=== PATIENT | female | born 1965 | race Caucasian/White ===

== ENCOUNTER 2017-01-11 05:52 | Emergency (ER) | payer OTHER ==
[~2017-01-11] VITALS: Ht 160 cm; Wt 124.3 kg
[~2017-01-11 05:52] MED LIST: ALBUAER2 INH; DIPH25CA65 PO; FLNIN/ NAE; LORA-741 PO; MOME100A INH; MONT1TAB3 PO
[2017-01-11 05:56] VITALS: TEMP 37.1; Ht 160 cm; Wt 124.3 kg
--- NOTE | 2017-01-11 06:48 | DIAGNOSTIC IMAGING REPORT ---
RIGHT SHOULDER MIN 2 VIEWS ROUTINE CLINICAL HISTORY: Right shoulder pain COMPARISON: None. DISCUSSION: No fractures or dislocations are visualized. There are no visible periarticular calcifications. No destructive lesions are evident. IMPRESSION: No fractures, periarticular calcifications, or destructive lesions are visualized Electronically signed by: Scot Andrews M.D. 01/11/2017 6:47 AM Dictated Date/Time: 01/11/2017 6:46 AM
[2017-01-11] MEDS ORDERED: HYDR-5688 PO (06:54)
[2017-01-11] MEDS ORDERED: PRED20TA2 PO (06:54)
[2017-01-11] MEDS ORDERED: IBUPROFEN 600 MG TAB PO STA (07:05)
[2017-01-11 07:23] VITALS: BP 136/101; PULSE 74; O2SAT 97
--- NOTE | 2017-01-11 22:39 | EMERGENCY ROOM VISIT NOTE ---
History First contact with patient: 06:02 Chief Complaint: SHOULDER PAIN Stated Complaint: RIGHT SHOULDER PAIN,CAN'T MOVE History of Present Illness The patient is a 51 year old female who presents to the Emergency Room with complaints of right shoulder pain for the past one month. The patient states that she has had a slowly worsening pain throughout this time. She does not recall a distinct injury or trauma. She is without numbness or paresthesias. She states that she woke up this morning with significantly worse symptoms, prompting her presentation. She does not have neck pain, elbow pain, or wrist pain. She is without chest pain or fever. No rash. She rates her current discomfort a 7/10. She has not taken anything duyo-zno-zxlzdax for her discomfort, as she states that she is allergic to all pain medication. She is not followed with PCP or seeing orthopedics for this. No previous imaging Review of Systems More than 10 systems were reviewed and otherwise negative with the exception of history of present illness. 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 (3) Family History Of Other Cardiovascular Diseases (4) Psychosis Nos Family History No pertinent family history Social History Smoking Status: Never Smoker Alcohol Use: none Drug Use: none Marital Status: Housing Status: lives with family Occupation Status: employed Current/Historical Medications Scheduled Prednisone (Prednisone Tab), 2 TAB PO DAILY Scheduled PRN Albuterol (Ventolin), 2 PUFFS INH QID PRN for Wheezing Diphenhydramine Hcl (Benadryl Allergy), 25-50 MG PO Q4H PRN for ALLERGIC REACTION Fluticasone Propionate (Fluticasone Propionate), 2 SPRAYS SHAUNA DAILY PRN for ALLERGIC REACTION Hydrocodone/Acetaminophen 5MG/325MG ([place] 5MG/325MG), 1 TABLET PO Q6 PRN for Pain Lorazepam (Ativan), 0.5 MG PO DAILY PRN for Anxiety Mometasone Furoate-Formoterol (Dulera 100/5 Mcg), 2 PUFFS INH QAM PRN for SOB/ Wheezing Montelukast Sodium (Singulair), 10 MG PO HS PRN for ALLERGIC REACTION Allergies Coded Allergies: Morphine (Verified Allergy, Severe, TONGUE SWELLS, HIVES, 10/02/16) CAUSES TONGUE TO SWELL Amoxicillin (Verified Allergy, Mild, GI UPSET, URINARY INCONTINENCE, ) Latex1 -Allergic Contact Dermititis (Verified Allergy, Unknown, RASH, 10/02) Uncoded Allergies: ALL PAIN MEDS (Allergy, Intermediate, HIVES, 01/09/11) Physical Exam Vital Signs Date Time Temp Pulse Resp B/P Pulse Ox O2 Delivery O2 Flow Rate FiO2 01/11/17 07:23 74 16 136/101 97 01/11/17 05:56 37.1 86 22 171/96 98 Room Air Physical Exam VITALS: Vitals are noted on the nurse's note and reviewed by myself. Vital signs stable. GENERAL: Well-developed, well-nourished, white female, who is in no acute distress and resting comfortably. Patient is cooperative with the examination. HEAD: Normocephalic atraumatic. NECK: Supple without nuchal rigidity. No lymphadenopathy. No thyromegaly. Cervical spine is nontender. HEART: Regular rate and rhythm without murmurs gallops or rubs. LUNGS: Clear to auscultation bilaterally without wheezes, rales or rhonchi. No retractions or accessory muscle use. MUSCULOSKELETAL: No muscle atrophy, erythema, or edema noted. Patient is not able to abduct at the right shoulder. There is no discomfort with internal or external rotation. Tenderness appreciated throughout the supraspinatus into the lateral deltoid. No significant deformity noted. No significant tenderness appreciated throughout the neck, elbow, or wrist. Medical Decision & Procedures ER Provider Diagnostic Interpretation: RIGHT SHOULDER MIN 2 VIEWS ROUTINE CLINICAL HISTORY: Right shoulder pain COMPARISON: None. DISCUSSION: No fractures or dislocations are visualized. There are no visible periarticular calcifications. No destructive lesions are evident. IMPRESSION: No fractures, periarticular calcifications, or destructive lesions are visualized Medications Administered Medications (Trade) Dose Ordered Sig/Miguel A Route Start Time Stop Time Status Last Admin Dose Admin Prednisone (PredniSONE TAB) 40 mg NOW STAT PO 01/11/17 06:08 01/11/17 06:10 DC 01/11/17 06:15 40 MG ED Course Physical exam and history were performed. Nursing notes and EMR were reviewed. Patient appears to have right shoulder pain worsening over the past month. I did offer pain medication, however the patient states that she is allergic to all pain medication. Because of this I did provide her a dose of prednisone, as clinically her symptoms are most likely related to arthritis or other similar chronic process. The patient x-rays were performed, and are without signs of acute fracture or dislocation. I had a lengthy discussion with the patient regarding her symptoms and further options of care. She states that her pain is so great that she is willing to take pain medications. She reports that if she takes Benadryl with medicine, she is able to tolerate things well. The patient and I decided that we would trial a very short course of Vicodin. She is to take Benadryl with this. Additionally I will provide her prednisone, which should help blunt any sort of medication reaction as well. The patient is to return to the emergency department with any new, worsening, or concerning symptoms. I do feel that she is good candidate for outpatient orthopedic follow -up, and she has seen [facility] in the past for this. She may need injections because of her allergy situation. The patient was pleased with this plan of voiced understanding. The chart was completed utilizing [employer] Speech Voice Recognition Software. Grammatical errors, random word insertions, pronoun errors, and incomplete sentences are an occasional consequence of this system due to software limitations, ambient noise, and hardware issues. Any formal questions or concerns about the content, text, or information contained within the body of this dictation should be directly addressed to the provider for clarification. . Medical Decision Differential diagnosis includes, but is not limited to: Sprain, strain, fracture , dislocation, subluxation, contusion, arthritis, rotator cuff injury, and others Impression Primary Impression: Right shoulder pain Departure Information Prescriptions Prednisone (Prednisone Tab) 20 Mg Tab 2 TAB PO DAILY for 4 Days, #8 TAB Prov: Jaime Tidwell PA-C 01/11/17 Hydrocodone/Acetaminophen 5MG/325MG ([place] 5MG/325MG) Tab 1 TABLET PO Q6 Y for Pain, #10 TAB For Initial Treatment Prov: Jaime Tidwell PA-C 01/11/17 Referrals Arlet Robins D.O. (PCP) Patient Instructions My [facility]
== END 2017-01-11 07:26 | disposition home or self-care (01) ==
LOC: C.EDB 05:54 → C.EDA 07:26
DX: M25.511 Pain in right shoulder (principal); Z90.5 Acquired absence of kidney; Z88.1 Allergy status to other antibiotic agents; Z88.5 Allergy status to narcotic agent; Z91.040 Latex allergy status; Z82.49 Family history of ischemic heart disease and other diseases of the circulatory system

== ENCOUNTER 2017-01-15 10:16 | Emergency (ER) | payer OTHER ==
[~2017-01-15] VITALS: Ht 160 cm; Wt 124.6 kg
[~2017-01-15 10:16] MED LIST changes: +HYDR-5688 PO; +PRED20TA2 PO
[2017-01-15 10:21] VITALS: TEMP 37; Ht 160 cm; Wt 124.6 kg
[2017-01-15 11:10] LABS: MANUAL MICROSCOPIC REQUIRED? NO; REVIEW REQ? YES; URINE APPEARANCE CLEAR (CLEAR); URINE BILIRUBIN NEG (NEG); URINE COLOR YELLOW; URINE EPITHELIAL CELL AUTO >30 /lpf (0-5); URINE NITRITE NEG (NEG); URINE PH 5.5 (4.5-7.5); URINE SPECIFIC GRAVITY 1.024 (1.000-1.030); UROBILINOGEN NEG (NEG)
[2017-01-15] MEDS ORDERED: SERT-234 PO (11:16)
[2017-01-15] MEDS ORDERED: IBUP-103 PO (11:16)
[2017-01-15] MEDS ORDERED: TOPI25TA99 PO (11:16)
[2017-01-15] MEDS ORDERED: MARIJUANA PO (11:16)
[2017-01-15 11:29] LABS: BENZODIAZEPINE, URINE NEG (NEG); COCAINE,URINE NEG (NEG); PHENCYCLIDINE, URINE NEG (NEG)
--- NOTE | 2017-01-15 11:36 | EMERGENCY ROOM VISIT NOTE ---
History Report prepared by Naun: Amanda Escalante Under the Supervision of: Dr. Ronnie Parker D.O. First contact with patient: 10:34 Chief Complaint: MENTAL HEALTH EVALUATION Stated Complaint: MENTAL BREAKDOWN History of Present Illness The patient is a 51 year old female who presents to the Emergency Room with complaints of worsening depression that began four weeks ago. The patient states that she has a history of suicidal depression since she was 17. She states that she has attempted suicide several times throughout the last several years. The patient states that the last time she was evaluated in the hospital for her suicidal depression was ten years ago when she lost her son. She states that she has followed with a therapist since then and states that the last time she saw her therapist was last night. The patient states that she was encouraged by her manager rn case from [place] to seek assistance four weeks ago, but the patient states that she has been holding off. The patient states that over the past two years she has lost several people who are very close to her, including a cousin, two grandmothers, several friends, and a client that she was close to. She states that for five years she fought to obtain full custody of her children who are 15 and 17 from their father who is an alcoholic. The patient states that she has dealt with their after affects and got them in to see psychologists. Today, the patient admits to suicidal ideation with a plan to overdose on her medications. She states that she would park her car in the hospital lot and take all her medications. The patient states that she would never shoot herself and would never do it where an "innocent person" would find her. She states that she needs a safe place to deal with her breakdown, noting that if she does not get the help she will hurt herself or herself. The patient states that she has been noncompliant with her medications since ving after having a conversation with her therapist and lead case manager. She states that she has been using her Ativan and has been self medicating with medicinal marijuana several times per day. The patient states that she has had right shoulder pain and was evaluated in the emergency department recently for it. She states that she needs to have a follow up appointment with Dr. Canas. The patient states that she has a history of 2 discs removed in her neck, hysterectomy, and a right nephrectomy. She denies any history of diabetes or hypertension. The patient denies any tobacco or alcohol use. Source of History: patient Onset: four weeks Position: other (global) Quality: other (depression) Timing: worsening Note: Associated Symptoms: suicidal ideation with plan, noncompliant with medications Review of Systems See HPI for pertinent positives & negatives. A total of 10 systems reviewed and were otherwise negative. 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 (3) Family History Of Other Cardiovascular Diseases (4) Psychosis Nos Family History No pertinent family history Social History Smoking Status: Never Smoker Alcohol Use: none Drug Use: none Marital Status: Housing Status: lives with family Occupation Status: employed Current/Historical Medications Scheduled Ibuprofen Tab (Advil), 400 MG PO UNKNOWN Prednisone (Prednisone Tab), 2 TAB PO DAILY Sertraline (Zoloft), 100 MG PO DAILY Topiramate (Topamax ), 25 MG PO HS [Marijuana], 1 DOSE PO DAILY Scheduled PRN Albuterol (Ventolin), 2 PUFFS INH QID PRN for Wheezing Diphenhydramine Hcl (Benadryl Allergy), 25-50 MG PO Q4H PRN for ALLERGIC REACTION Fluticasone Propionate (Fluticasone Propionate), 2 SPRAYS SHAUNA DAILY PRN for ALLERGIC REACTION Hydrocodone/Acetaminophen 5MG/325MG ([place] 5MG/325MG), 1 TABLET PO Q6 PRN for Pain Lorazepam (Ativan), 1 MG PO DAILY PRN for Anxiety Mometasone Furoate-Formoterol (Dulera 100/5 Mcg), 2 PUFFS INH QAM PRN for SOB/ Wheezing Montelukast Sodium (Singulair), 10 MG PO HS PRN for ALLERGIC REACTION Allergies Coded Allergies: Morphine (Verified Allergy, Severe, TONGUE SWELLS, HIVES, 01/15/17) CAUSES TONGUE TO SWELL Amoxicillin (Verified Allergy, Mild, GI UPSET, URINARY INCONTINENCE, ) Latex1 -Allergic Contact Dermititis (Verified Allergy, Unknown, RASH, 01/15) Uncoded Allergies: ALL PAIN MEDS (Allergy, Intermediate, HIVES, 01/09/11) Physical Exam Vital Signs Date Time Temp Pulse Resp B/P Pulse Ox O2 Delivery O2 Flow Rate FiO2 01/15/17 17:03 61 17 144/87 97 Room Air 01/15/17 13:37 76 20 163/100 98 Room Air 01/15/17 10:21 37.0 91 20 148/86 96 Room Air Physical Exam GENERAL: Patient is awake, alert, somewhat anxious appearing, but comfortable. Does not appear to be in pain or guarded. EYES: The conjunctivae are clear. The pupils are round and reactive. EARS, NOSE, MOUTH AND THROAT: The nose is without any evidence of any deformity. Mucous membranes are moist tongue is midline NECK: The neck is nontender and supple. RESPIRATORY: Normal respiratory effort is noted there is no evidence of wheezing rhonchi or rales CARDIOVASCULAR: Regular rate and rhythm noted there no murmurs rubs or gallops normal S1 normal S2 GASTROINTESTINAL: The abdomen is soft. Bowel sounds are present in all quadrants. Abdomen is nontender MUSCULOSKELETAL/EXTREMITIES: Right shoulder is in a sling from a recent ER visit. SKIN: There is no obvious evidence of any rash. There are no petechiae, pallor or cyanosis noted. NEUROLOGIC: Patient is awake alert and oriented x3 strength is symmetric patellar reflexes are 2+ bilaterally PSYCH: Patient was tearful and somewhat anxious appearing, currently admits to suicidal ideation with a plan to overdose on medications. Medical Decision & Procedures Laboratory Results 01/15/17 11:24 Red Blood Count 3.99, Mean Corpuscular Volume 90.2, Mean Corpuscular Hemoglobin 32.1, Mean Corpuscular Hemoglobin Concent 35.6, Mean Platelet Volume 9.4, Neutrophils (%) (Auto) 82.7, Lymphocytes (%) (Auto) 12.7, Monocytes (%) (Auto) 4.0, Eosinophils (%) (Auto) 0.2, Basophils (%) (Auto) 0.2, Neutrophils # (Auto) 10.23, Lymphocytes # (Auto) 1.57, Monocytes # (Auto) 0.50, Eosinophils # (Auto) 0.02, Basophils # (Auto) 0.02 01/15/17 13:57 Test 01/15/17 10:57 01/15/17 11:24 01/15/17 13:57 Urine Color YELLOW Urine Appearance CLEAR (CLEAR) Urine pH 5.5 (4.5-7.5) Urine Specific [place] 1.024 (1.000-1.030) Urine Protein NEG (NEG) Urine Glucose (UA) NEG (NEG) Urine Ketones NEG (NEG) Urine Occult Blood 1+ (NEG) Urine Nitrite NEG (NEG) Urine Bilirubin NEG (NEG) Urine Urobilinogen NEG (NEG) Urine Leukocyte Esterase NEG (NEG) Urine WBC (Auto) 1-5 /hpf (0-5) Urine RBC (Auto) 5-10 /hpf (0-4) Urine Hyaline Casts (Auto) 1-5 /lpf (0-5) Urine Epithelial Cells (Auto) >30 /lpf (0-5) Urine Bacteria (Auto) 1+ (NEG) Urine Yeast (Auto) (NONE PRSENT) Urine Opiates Screen POS (NEG) Urine Methadone, Qualitative NEG (NEG) Urine Barbiturates NEG (NEG) Urine Phencyclidine (PCP) Level NEG (NEG) Ur Amphetamine/Methamphetamine NEG (NEG) MDMA (Ecstasy) Screen NEG (NEG) Urine Benzodiazepines Screen NEG (NEG) Urine Cocaine Metabolite NEG (NEG) Urine Marijuana (THC) POS (NEG) White Blood Count 12.37 K/uL (4.8-10.8) Red Blood Count 3.99 M/uL (4.2-5.4) Hemoglobin 12.8 g/dL (12.0-16.0) Hematocrit 36.0 % (37-47) Mean Corpuscular Volume 90.2 fL (80-100) Mean Corpuscular Hemoglobin 32.1 pg (25-34) Mean Corpuscular Hemoglobin Concent 35.6 g/dl (32-36) Platelet Count 207 K/uL (130-400) Mean Platelet Volume 9.4 fL (7.4-10.4) Neutrophils (%) (Auto) 82.7 % Lymphocytes (%) (Auto) 12.7 % Monocytes (%) (Auto) 4.0 % Eosinophils (%) (Auto) 0.2 % Basophils (%) (Auto) 0.2 % Neutrophils # (Auto) 10.23 K/uL (1.4-6.5) Lymphocytes # (Auto) 1.57 K/uL (1.2-3.4) Monocytes # (Auto) 0.50 K/uL (0.11-0.59) Eosinophils # (Auto) 0.02 K/uL (0-0.5) Basophils # (Auto) 0.02 K/uL (0-0.2) RDW Standard Deviation 42.6 fL (36.4-46.3) RDW Coefficient of Variation 13.0 % (11.5-14.5) Immature Granulocyte % (Auto) 0.2 % Immature Granulocyte # (Auto) 0.03 K/uL (0.00-0.02) Total Bilirubin 0.7 mg/dl (0.2-1) Direct Bilirubin 0.2 mg/dl (0-0.2) Aspartate Amino Transf (AST/SGOT) 5 U/L (15-37) Alanine Aminotransferase (ALT/SGPT) 15 U/L (12-78) Alkaline Phosphatase 67 U/L (45-117) Total Protein 7.3 gm/dl (6.4-8.2) Albumin 3.8 gm/dl (3.4-5.0) Globulin 3.5 gm/dl (2.5-4.0) Albumin/Globulin Ratio 1.1 (0.9-2) Thyroid Stimulating Hormone (TSH) 0.874 uIu/ml (0.300-4.500) Ethyl Alcohol mg/dL < 3.0 mg/dl (0-3) Venous Blood pH 7.43 (7.36-7.41) Venous Blood Partial Pressure CO2 34 mmHg (38.0-50.0) Venous Blood Partial Pressure O2 49 mmHg Venous Blood HCO3 22 mmol/L Venous Blood Oxygen Saturation 83.5 % Venous Blood Base Excess -1.3 mmol/L Anion Gap 9.0 mmol/L (3-11) Est Creatinine Clear Calc Drug Dose 78.5 ml/min Estimated GFR () 67.8 Estimated GFR (Non- 58.5 BUN/Creatinine Ratio 20.1 (10-20) Calcium Level 8.9 mg/dl (8.5-10.1) Laboratory results per my review. ED Course 1035: The patient was evaluated in room A5. A complete history and physical examination were performed. 1639: The patient was accepted at the [facility] for further evaluation and treatment. Medical Decision Differential diagnosis: Etiologies such as mood disorder, infection, hypoglycemia, electrolyte abnormalities, cardiac sources, intracerebral event, toxicologic, neurologic, as well as others were entertained. Nursing notes reviewed. Patient's previous electronic medical records reviewed. The patient is a 51-year-old female who presented to the department with significant anxiety and depression symptoms. She also had suicidal ideation with a plan to overdose on medications. Oas-ukbmcio-eupiiomq-iy-ksbq-atqq-degree -of-hyperventilation.-Bp-fsq-zqwiisz-lpb-de-lplrwjcwbba-qgr-yos-h-low- bicarbonate.-Gknpdm-kzmbunhqpv-mynbcsw-jvn-trxg-ozey hyperventilation. The patient was medically cleared in the emergency department. She was evaluated by the mental health lead case manager in the emergency department. She was felt to be a good candidate for inpatient management. The patient was referred to to the [facility]. She was accepted at the [facility]. Transfer documentation was follow-up by myself. Impression Primary Impression: Depression Additional Impression: Suicidal ideation Scribe Attestation The scribe's documentation has been prepared under my direction and personally reviewed by me in its entirety. I confirm that the note above accurately reflects all work, treatment, procedures, and medical decision making performed by me. Departure Information Dispostion Mental Health Acute Care Referrals Arlet Robins D.O. (PCP) Problem Qualifiers
[2017-01-15 11:37] LABS: BASO % 0.2 %; BASO ABS # 0.02 K/uL (0-0.2); COMPLETE YES; EOS % 0.2 %; IG% 0.2 %; LYMPH % 12.7 %; LYMPH ABS # 1.57 K/uL (1.2-3.4); MEAN CELL VOLUME 90.2 fL (80-100); MEAN CORPUSCULAR HEMOGLOBIN 32.1 pg (25-34); MEAN CORPUSCULAR HGB CONC 35.6 g/dl (32-36); MEAN PLATELET VOLUME 9.4 fL (7.4-10.4); NEUT % 82.7 %; PLATELET COUNT 207 K/uL (130-400); RED BLOOD COUNT 3.99 M/uL (4.2-5.4); WHITE BLOOD COUNT 12.37 K/uL (4.8-10.8)
[2017-01-15 11:58] LABS: CREATININE 1.2 mg/dl (0.60-1.20)
[2017-01-15 11:59] LABS: BUN/CREATININE RATIO 18.9 (10-20); CALCIUM 8.4 mg/dl (8.5-10.1); POTASSIUM 3.9 mmol/L (3.5-5.1)
[2017-01-15 12:09] LABS: ALB/GLOB RATIO 1.1 (0.9-2); THYROID STIMULATING HORMONE 0.874 uIu/ml (0.300-4.500)
[2017-01-15 14:12] LABS: VEN BLD GAS O2 SATURATION 83.5 %; VEN BLOOD GAS BASE EXCESS -1.3 mmol/L
[2017-01-15 14:25] LABS: BUN/CREATININE RATIO 20.1 (10-20); CALCIUM 8.9 mg/dl (8.5-10.1); CREATININE 1.1 mg/dl (0.60-1.20); POTASSIUM 4.5 mmol/L (3.5-5.1)
[2017-01-15 17:03] VITALS: BP 144/87; PULSE 61; O2SAT 97
[2017-01-17 15:26] LABS: COD UR NEGATIVE NG/ML (CUTOFF=50); HYDROCOD UR 706 NG/ML (CUTOFF=50); HYDROMOR UR 242 NG/ML (CUTOFF=50); MORPHINE UR NEGATIVE NG/ML (CUTOFF=50); NORHYDROCODONE CONF UR 700 NG/ML (CUTOFF=50); OXYMORPH UR NEGATIVE NG/ML (CUTOFF=50)
== END 2017-01-15 18:27 ==
LOC: C.EDB 10:17 → C.EDA 18:27
DX: F32.9 Major depressive disorder, single episode, unspecified (principal); R45.851 Suicidal ideations; Z90.710 Acquired absence of both cervix and uterus; Z90.5 Acquired absence of kidney; Z90.79 Acquired absence of other genital organ(s); Z79.899 Other long term (current) drug therapy; Z88.1 Allergy status to other antibiotic agents; Z88.5 Allergy status to narcotic agent; Z91.040 Latex allergy status

== ENCOUNTER → 2017-05-23 | Outpatient (CLI) | payer OTHER ==
[~2017-05-23] MED LIST changes: +IBUP-103 PO; +MARIJUANA PO; -PRED20TA2 PO; +SERT-234 PO; +TOPI25TA99 PO
== END | disposition home or self-care (01) ==
LOC: C.CPL 15:01
PROVIDERS: ATTEND Orthopaedic Surgery
DX: Z01.810 Encounter for preprocedural cardiovascular examination (principal); I49.3 Ventricular premature depolarization

== ENCOUNTER 2021-02-15 18:59 | Inpatient (IN) ==
[2021-02-15 20:23] LABS: Basophils # (auto) 0.01 K/uL (0-0.2); Basophils % (auto) 0.2 %; Eosinophils # (auto) 0.06 K/uL (0-0.5); Eosinophils % (auto) 1.1 %; Hematocrit (blood only) 35.8 % (37-47); Hemoglobin 12.6 g/dL (12.0-16.0); Immature Granulocytes # (auto) 0.01 K/uL (0.00-0.02); Immature Granulocytes % (auto) 0.2 %; Lymphocytes # (auto) 1.65 K/uL (1.2-3.4); Lymphocytes % (auto) 29.2 %; Mean Corpuscular Hgb Conc 35.2 g/dL (32-36); Mean Platelet Volume 9.1 fL (7.4-10.4); Monocytes # (auto) 0.54 K/uL (0.11-0.59); Monocytes % (auto) 9.6 %; Neutrophils # (auto) 3.38 K/uL (1.4-6.5); Neutrophils % (auto) 59.7 %; Platelet Count 248 K/uL (130-400); RDW Coefficient of Variation 12.5 % (11.5-14.5); RDW Standard Deviation 40.2 fL (36.4-46.3); Red Blood Count 4.07 M/uL (4.2-5.4); White Blood Count 5.65 K/uL (4.8-10.8)
[2021-02-15 20:39] LABS: Albumin Level 3.5 gm/dl (3.4-5.0); BUN Creatinine Ratio 17.4 (10-20); Calcium 9.7 mg/dl (8.5-10.1); Creatinine Clr Calc Pharmacy 64.8 ml/min; Est GFR (African American) 59.3; Est GFR (Non-African American) 51.2; Potassium 3.8 mmol/L (3.5-5.1)
[2021-02-15 20:45] LABS: Acetaminophen < 2 ug/ml (10-30); Salicylate < 1.7 mg/dl (2.8-20)
[2021-02-15 20:49] LABS: Albumin Globulin Ratio 0.9 (0.9-2); Bilirubin,Total 1.2 mg/dl (0.2-1); Globulin 4.1 gm/dl (2.5-4.0); Thyroid Stimulating Hormone 0.006 uIu/ml (0.300-4.500); Total Protein 7.6 gm/dl (6.4-8.2)
[2021-02-15 21:02] LABS: T4 Free Thyroxine 2.27 ng/dl (0.8-1.6)
[2021-02-15] MEDS ORDERED: SODIUM CHLORIDE 0.9% 1000ML 1,000 ML IV ONE (21:23)
[2021-02-15 23:37] LABS: Appearance Urine Clear (Clear); Bacteria Urine Automated Negative (Negative); Bilirubin Urine Negative (Negative); Blood Urine Trace (Negative); Color Urine Yellow; Glucose Urine UA Negative (Negative); Ketones Urine Negative (Negative); Leukocyte Esterase Urine Negative (Negative); Nitrite Urine Negative (Negative); Protein Urine Negative (Negative); RBC Urine Automated 0-4 /hpf (0-4); Specific Gravity Urine 1.012 (1.000-1.030); Urobilinogen Urine Negative (Negative); WBC Urine Automated 0 /hpf (0-5); pH Urine 5.5 (4.5-7.5)
[2021-02-16 00:49] LABS: Amphetamines+Metham, Urine Neg (Neg); Barbiturates, Urine Neg (Neg); Benzodiazepine, Urine Neg (Neg); Cocaine, Urine Neg (Neg); MDMA (Ecstacy), Urine Neg (Neg); Methadone, Urine Neg (Neg); Opiate, Urine Neg (Neg); Phencyclidine, Urine Neg (Neg)
--- NOTE | 2021-02-16 02:21 | History and Physical Report ---
DATE OF ADMISSION: 02/15/2021 CHIEF COMPLAINT: Suicidal ideation, shingles. HISTORY OF PRESENT ILLNESS: A 55-year-old female with past medical history significant for asthma, seasonal allergic rhinitis, GERD, stage III chronic kidney disease, allergic conjunctivitis, who went to PCP office today because of rash developing on her left shoulder region. The rash started about 2-3 days ago, it was painful and when she was told she had shingles, she was worried about how she got it and when family doctor asked whether she has any anxiety and stress at home, then she started crying and she could not stop crying. She also disclosed plans of taking her life at PCP office and she was brought into the hospital. Currently, resting comfortably. Case management from [employer] in the room and patient says she is feeling better now after talking to case management. Denies any headache, no blurred visions, no sore throat. She has chronic cough, chronic shortness of breath on exertion. Once in a while she gets chest pain, attributes it to her GERD. Currently, no chest pain. Has nausea, no vomiting. Appetite is down. She says she thinks she lost about 15 pounds in the last 1 month, she is having diarrhea for last 1 month about three times a day, mostly watery. Today was the first time she got some formed stool. She denies any blood in the stools or black stools. Has normal bladder movements. Once in a while she feels palpitations. ALLERGIES: FENTANYL, MORPHINE, NSAIDS, LATEX, VANCOMYCIN, PENICILLIN, AND AMOXICILLIN. PAST MEDICAL HISTORY: As mentioned above. PAST SURGICAL HISTORY: Colonoscopy, removal of kidney at age 26 because it was poorly developed, tonsillectomy, cervical laminectomy, total hysterectomy. MEDICATIONS: The patient is on albuterol inhalation every 4 hours p.r.n., albuterol nebs p.r.n., amitriptyline 25 mg p.o. at bedtime, ascorbic acid 750 mg p.o. a.m.,azelastine 2 sprays intranasal daily p.r.n., Breo Ellipta 1 inhalation in a.m., cetirizine 10 mg p.o. daily p.r.n., cyclobenzaprine 5 mg p.o. b.i.d. p.r.n., vitamin D 1250 mcg p.o. weekly, Flonase 2 sprays intranasal daily p.r.n., glucosamine chondroitin 1 capsule p.o. a.m., loratadine 10 mg p.o. at bedtime p.r.n., Ativan 0.5-1 mg p.o. daily p.r.n., sertraline 100 mg p.o. daily, valacyclovir 1000 mg p.o. t.i.d., vitamin B complex 1 capsule p.o. a.m. FAMILY HISTORY: Significant for daughter has allergies, asthma; father has PA, had sudden at age of 52; mother has CAD; sister has allergies. SOCIAL HISTORY: Currently living with her daughter. No smoking, no alcohol. Marijuana 2 times per week as per Epic. REVIEW OF SYSTEMS: As per HPI. Rest of the review of systems negative. PHYSICAL EXAMINATION: GENERAL: The patient is obese, not in acute distress. VITAL SIGNS: Temperature 35.9, pulse 95, respiratory rate 18, blood pressure 143/73, oxygen 95% on room air. HEENT: Head atraumatic. Oral mucosa moist. NECK: No JVD, no neck masses seen. CARDIOVASCULAR: S1, S2 heard. Mild tachycardia. No murmur, no gallop. RESPIRATORY SYSTEM: Normal AP diameter. No accessory muscle use. No wheezing, no crackles. ABDOMEN: Soft, bowel sounds present, nontender. No distention. CENTRAL NERVOUS SYSTEM: Cranial nerves II-XII grossly intact, nonfocal. EXTREMITIES: No edema, no erythema. SKIN: Erythematous papular rash seen in a dermatomal fashion on the left breast region up to the left shoulder. LABORATORY DATA: WBC 5.6, hemoglobin 12.6, hematocrit 35.8, platelets 248. Sodium 139, potassium 3.8, chloride 106, bicarbonate 27, BUN 21, creatinine 1.2, serum glucose 96, calcium 9.7, total bilirubin 1.2, AST 11, ALT 14, alkaline phosphatase 106. TSH 0.06, free T4 of 2.27. Urinalysis, trace blood, trace salicylates less than 1.7, acetaminophen less than 2, alcohol level less than 3, rest of the urine drug screen is pending. SARS-CoV-2 negative. EKG: Sinus rhythm with short CT at a rate of 100, no significant change was found. ASSESSMENT AND PLAN: This 55-year-old female presents with suicidal ideation and found to have shingles and also hyperthyroidism. 1. Suicidal ideation: Continue her home Zoloft and Ativan p.r.n. One-on-one observation. Suicidal checks. Consult psychiatry in the a.m. for further recommendations. 2. Shingles, active lesions: Started within the last 2-3 days. Started on valacyclovir which will be continued. Pain control. Continue amitriptyline. Can consider gabapentin. We will place on oxycodone p.r.n. 3.hyperthyroidism: TSH is low and free T4 is high. The patient is also having diarrhea for the last 1 month and states that she has lost about 15 pounds in the last 1 month. Could be secondary to hyperthyroidism. We will recheck the labs in the a.m. We will start with beta salma. If repeat labs same , we can start methimazole and follow up with endocrinology. 4. Chronic diarrhea since last 1 month. History of C. diff. We will check for Clostridium difficile and stool cultures. 5. Chronic kidney disease stage III, presently with creatinine of 1.2. We will follow the labs. 6. Asthma, mild. Continue home inhalers, currently stable. Continue cetirizine. 7. Deep venous thrombosis prophylaxis, sequential compression devices for now. 8. Disposition: Closely monitor in the [employer]. Level 1 full code. Disposition to be determined. Social service to help with discharge planning. ROSALIO
--- NOTE | 2021-02-16 02:24 | Emergency Department Note ---
Impression & Plan Suicidal ideation, Diarrhea, Shingles ED Provider Note NAME: ANDREEA HURD AGE: 55 SEX: F ARRIVES VIA: Walk-In INFORMANT: Patient ED PROVIDER(S): Amaya Conroy MD CHIEF COMPLAINT: Suicidal ideation, shingles PLAN: Disposition: Inpatient Condition: Fair Referral: Hospitalist MEDICAL DECISION MAKING: This patient was evaluated and appeared to be somewhat anxious and very tearful. Patient expresses suicidal thoughts and a plan that has been longstanding. Recently her plan change which "scares her." Patient states she has spoken to the spiritual world for many years. She believes her 21-year-old son who has been reincarnated through her sister's new baby. She is now even more upset because she cannot see the new baby because of her shingles diagnosis. The patient will require psychiatric evaluation for her suicidal ideation however she has an active shingles rash and complains of diarrhea. Patient was discussed with the hospitalist service, Dr. Ruffin due to isolation concerns and will require psychiatric consultation. She is aware of the plan and agrees. Triage Nursing notes reviewed. Additional history obtained from Prior medical records reviewed Vital Signs: reviewed and remarkable for no significant abnormalities Differential diagnosis: Mood disorder, infection, hypoglycemia, electrolyte abnormalities, cardiac sources, intracerebral event, toxicologic, trauma, neurologic, as well as other pathologies. ER treatment provided: IV NSS Diagnostics interpreted by me: ECG: Sinus rhythm with short VA interval at 100 bpm. Normal axis, QTC is normal at 441. No PVC, no PAC. Normal ST segments. Laboratory studies: See below HPI: 55/F arrives for evaluation of suicidal ideation. Patient saw her primary care physician today for a rash along her upper left chest and neck. She was told that it is shingles. Patient states she was asked about any stress in her life and she broke down, admitting to her multiple stressors and suicidal thoughts. Patient states she has had a plan for some time to drive to a h ospital parking lot and overdose on pills. Her hope is that a hospital employee, who is "used to seeing these things" would find her. Patient states lately she has been concerned about what her family would think and would now like to stage an accident. She has been thinking about driving her car off of the road. The patient states she feels as though she is drowning. She has had several people including her son at the age of 21. She states she was able to speak to him in the spiritual world but now he has been reincarnated through her nephew. She is very distressed about the shingles diagnosis because now she will not be able to see the baby. 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 She feels there is something wrong with her with all of this in her life. ROS: See above HPI for pertinent positives & negatives. A total of 10 systems reviewed and were otherwise negative. PAST MEDICAL HISTORY:See Below PAST SURGICAL HISTORY:See Below FAMILY HISTORY:See Below SOCIAL HISTORY:See Below HOME MEDICATIONS:See Below ALLERGIES:See Below VITALS:See Below PHYSICAL EXAMINATION: Vital signs reviewed. General: Well-appearing 55 yo female, in no significant distress. HEENT: No scleral icterus, PERRLA, neck supple. Atraumatic. Cardiovascular: Regular rate and rhythm, no extra sounds. Pulmonary: Clear to auscultation bilaterally, normal work of breathing. Abdomen: Soft, nontender, nondistended, positive bowel sounds. Musculoskeletal: Atraumatic, no peripheral edema. Neurologic: Patient awake alert and oriented x 3 Psych: Positive SI with plan, negative HI Skin: Warm, dry, erythematous blotchy, tender rash with tiny vesicular appearing lesions across the left anterior chest Amaya Conroy MD Past Med/Surg History Medical History Anxiety and depression Asthma CKD (chronic kidney disease) s/p right nephrectomy, left kidney functions at 80% Degenerative disc disease Fibromyalgia Migraine Morbid obesity with BMI of 45.0-49.9, adult Post traumatic stress disorder Surgical History History of arthroscopy of right shoulder History of fusion of cervical spine History of hysterectomy History of left breast biopsy benign History of right nephrectomy removed at age 26 (kidney was "toxic"/stopped growing at age 6) History of tonsillectomy History of tooth extraction History of wisdom tooth extraction Family History Son Family history of reaction to anesthesia nausea/vomiting Mother Family history of reaction to anesthesia nausea/vomiting Aunt Family history of diabetes mellitus Family/Other Family history of diabetes mellitus cousin Social History Smoking Status: Never smoker Second Hand Exposure: No; Hx Alcohol Use: No Hx Substance Use: Yes Last Used Substance: Hours (ago) Last Used Substance Other:: occasional marijuana (pipe), most recent use 09/28/20 Preferred Language: Peruvian Communication Ability: Effective Painter Plate Required: No Beliefs That Will Affect Care: Spiritual (reports close connection with "the spiritual realm") Current Living Situation: Family Current Living Situation Comment: Lives with daughter Feels Safe at Home: Yes Assistive Devices: Glasses Allergies Allergies Allergy/AdvReac Type Severity Reaction Status Date / Time fentanyl Allergy Severe anaphylaxis, Verified 10/20/20 05:57 diffuse swelling and dyspnea morphine Allergy Severe tongue Verified 10/20/20 05:57 swelling, hives NSAIDS (Non-Steroidal Allergy Intermediate Hives Verified 10/20/20 05:57 Anti-Inflamma latex Allergy Mild Rash Verified 10/20/20 05:57 vancomycin Allergy Mild Rash Verified 10/20/20 05:57 Penicillins AdvReac Intermediate GI upset Verified 10/20/20 05:57 amoxicillin AdvReac Mild GI upset, Verified 10/20/20 05:57 urinary incontinence Home Meds Home Medications Medication Instructions Recorded Confirmed Breo Ellipta 1 inh INHALATION QAM 12/09/19 02/15/21 albuterol sulfate 2 puff INHALATION Q4 PRN 12/09/19 02/15/21 albuterol sulfate 2.5 mg INHALATION Q4 PRN 12/09/19 02/15/21 fluticasone propionate [Flonase 2 spray INTRANASAL DAILY PRN 12/09/19 02/15/21 Allergy Relief] loratadine 10 mg PO HS PRN 12/09/19 02/15/21 lorazepam 0.5 - 1 mg PO DAILY PRN 12/09/19 02/15/21 turmeric 400 mg PO QAM 12/09/19 02/15/21 Glucosamine Chondroitin 1 cap PO QAM 10/03/20 02/15/21 ascorbic acid (vitamin C) [Vitamin 750 mg PO QAM 10/03/20 02/15/21 C] ergocalciferol (vitamin D2) 1,250 mcg PO WK 10/03/20 02/15/21 [Vitamin D2] lysine 500 mg PO QAM PRN 10/03/20 02/15/21 omega-3 fatty acids-vitamin E 1 cap PO QAM 10/03/20 02/15/21 sertraline [Zoloft] 50 mg PO QAM 10/03/20 02/15/21 vitamin B complex 1 cap PO QAM 10/03/20 02/15/21 amitriptyline 25 mg PO HS 02/15/21 02/15/21 azelastine 2 spray INTRANASAL DAILY PRN 02/15/21 02/15/21 cetirizine 10 mg PO DAILY PRN 02/15/21 02/15/21 cyclobenzaprine 5 mg PO BID PRN 02/15/21 02/15/21 valacyclovir [Valtrex] 1,000 mg PO TID 02/15/21 02/15/21 Previous Rx's Medication Instructions Recorded lidocaine 1 patch TRANSDERMAL HS #30 ea 02/17/21 methimazole 5 mg PO DAILY #30 tab 02/17/21 metoprolol tartrate 12.5 mg PO BID 30 Days #30 tab 02/17/21 Results & Data (ED) Vital Signs Vital Signs - 24 hr 02/15/21 19:01 02/15/21 21:15 Temperature 35.9 C L Temperature Source Temporal Artery Scan Pulse Rate 110 H Pulse Rate [Left Finger] 95 H Pulse Rhythm Regular Pulse Rhythm [Left Finger] Regular Pulse Strength Normal Respiratory Rate 20 18 Respiratory Effort / Characteristics Non-Labored Spontaneous Non-Labored Spontaneous Respiratory Depth Normal Normal Blood Pressure 160/114 H Blood Pressure [Right Arm] 143/73 H Blood Pressure Mean 129 Blood Pressure Mean [Right Arm] 96 Blood Pressure Position Sitting Pulse Oximetry 98 95 Oxygen Delivery Method Room Air Room Air Sepsis Recent Fever Within 48 Hours No Sepsis New/Unexplained Change in Mental Status N/A Sepsis Action Taken by Nursing No Action Required Home Medications Current Medication List: was personally reviewed by me Laboratory Data Attestation: I reviewed the patient's lab results. Result diagrams: 02/16/21 05:17 02/16/21 05:17 Lab Results 02/15/21 02/15/21 02/15/21 Range/Units 19:36 19:36 20:02 WBC 5.65 (4.8-10.8) K/uL RBC 4.07 L (4.2-5.4) M/uL Hgb 12.6 (12.0-16.0) g/dL Hct 35.8 L (37-47) % MCV 88.0 (80-100) fL MCH 31.0 (25-34) pg MCHC 35.2 (32-36) g/dL RDW Std Deviation 40.2 (36.4-46.3) fL RDW Coeff of Saniya 12.5 (11.5-14.5) % Plt Count 248 (130-400) K/uL MPV 9.1 (7.4-10.4) fL Immature Gran % (Auto) 0.2 % Neut % (Auto) 59.7 % Lymph % (Auto) 29.2 % [place] % (Auto) 9.6 % Eos % (Auto) 1.1 % Baso % (Auto) 0.2 % Neut # (Auto) 3.38 (1.4-6.5) K/uL Lymph # (Auto) 1.65 (1.2-3.4) K/uL [place] # (Auto) 0.54 (0.11-0.59) K/uL Eos # (Auto) 0.06 (0-0.5) K/uL Baso # (Auto) 0.01 (0-0.2) K/uL Immature Gran # (Auto) 0.01 (0.00-0.02) K/uL Sodium (136-145) mmol/L Potassium (3.5-5.1) mmol/L Chloride (98-107) mmol/L Carbon Dioxide (21-32) mmol/L Anion Gap (3-11) BUN (7-18) mg/dl Creatinine (0.6-1.2) mg/dl Est Cr Clr Drug Dosing ml/min Est GFR ( Amer) Est GFR (Non-Af Amer) BUN/Creatinine Ratio (10-20) Glucose (70-99) mg/dl Calcium (8.5-10.1) mg/dl Total Bilirubin (0.2-1) mg/dl AST (15-37) U/L ALT (12-78) U/L Alkaline Phosphatase (45-117) U/L Total Protein (6.4-8.2) gm/dl Albumin (3.4-5.0) gm/dl Globulin (2.5-4.0) gm/dl Albumin/Globulin Ratio (0.9-2) TSH (0.300-4.500) uIu/ml Free T4 (0.8-1.6) ng/dl Salicylates (2.8-20) mg/dl Acetaminophen (10-30) ug/ml Ethyl Alcohol mg/dL (0-3) mg/dl COVID-19 [facility] SARS-[facility]-2, RNA, NAAT NEGATIVE (NEGATIVE) 02/15/21 02/15/21 02/15/21 Range/Units 20:02 20:02 20:02 WBC (4.8-10.8) K/uL RBC (4.2-5.4) M/uL Hgb (12.0-16.0) g/dL Hct (37-47) % MCV (80-100) fL MCH (25-34) pg MCHC (32-36) g/dL RDW Std Deviation (36.4-46.3) fL RDW Coeff of Saniya (11.5-14.5) % Plt Count (130-400) K/uL MPV (7.4-10.4) fL Immature Gran % (Auto) % Neut % (Auto) % Lymph % (Auto) % [place] % (Auto) % Eos % (Auto) % Baso % (Auto) % Neut # (Auto) (1.4-6.5) K/uL Lymph # (Auto) (1.2-3.4) K/uL [place] # (Auto) (0.11-0.59) K/uL Eos # (Auto) (0-0.5) K/uL Baso # (Auto) (0-0.2) K/uL Immature Gran # (Auto) (0.00-0.02) K/uL Sodium 139 (136-145) mmol/L Potassium 3.8 (3.5-5.1) mmol/L Chloride 106 (98-107) mmol/L Carbon Dioxide 27 (21-32) mmol/L Anion Gap 6.0 (3-11) BUN 21 H (7-18) mg/dl Creatinine 1.20 (0.6-1.2) mg/dl Est Cr Clr Drug Dosing 64.8 ml/min Est GFR ( Amer) 59.3 Est GFR (Non-Af Amer) 51.2 BUN/Creatinine Ratio 17.4 (10-20) Glucose 96 (70-99) mg/dl Calcium 9.7 (8.5-10.1) mg/dl Total Bilirubin 1.2 H (0.2-1) mg/dl AST 11 L (15-37) U/L ALT 14 (12-78) U/L Alkaline Phosphatase 106 (45-117) U/L Total Protein 7.6 (6.4-8.2) gm/dl Albumin 3.5 (3.4-5.0) gm/dl Globulin 4.1 H (2.5-4.0) gm/dl Albumin/Globulin Ratio 0.9 (0.9-2) TSH 0.006 L (0.300-4.500) uIu/ml Free T4 2.27 H (0.8-1.6) ng/dl Salicylates < 1.7 L (2.8-20) mg/dl Acetaminophen < 2 L (10-30) ug/ml Ethyl Alcohol mg/dL < 3.0 (0-3) mg/dl COVID-19 Eval Order SARS-CoV-2, RNA, NAAT (NEGATIVE) Administered Medications Acetaminophen (Acetaminophen 325 Mg Tab) 650 mg PO Q4H PRN PRN Reason: Pain or Fever Stop: 03/18/21 02:28 Last Admin: 02/16/21 17:10 Dose: 650 mg Documented by: [id number] Admin: 02/16/21 03:44 Dose: 650 mg Documented by: [id number] Amitriptyline HCl (Amitriptyline Hcl 25 Mg Tab) 25 mg PO SAIDA Stop: 03/18/21 20:59 Last Admin: 02/17/21 20:24 Dose: 25 mg Documented by: [id number] Admin: 02/16/21 20:25 Dose: 25 mg Documented by: [id number] Ascorbic Acid (Ascorbic Acid 500 Mg Tab) [facility] [place] Stop: 03/18/21 08:59 Last Admin: 02/18/21 08:34 Dose: 750 mg Documented by: [id number] Admin: 02/17/21 08:41 Dose: 750 mg Documented by: [id number] Admin: 02/16/21 09:18 Dose: 750 mg Documented by: [id number] Cyclobenzaprine HCl (Cyclobenzaprine Hcl 5 Mg Tab) 5 mg PO BID PRN PRN Reason: Muscle Spasticity Stop: 03/18/21 02:28 Last Admin: 02/18/21 08:36 Dose: 5 mg Documented by: [id number] Admin: 02/17/21 21:39 Dose: 5 mg Documented by: [id number] Admin: 02/16/21 03:44 Dose: 5 mg Documented by: [id number] Fluticasone/Vilanterol (Fluticasone/Vilanterol 200/25mcg 14 Puffs/Inhaler) 1 p uffs INH QAM SAIDA Stop: 03/18/21 08:59 Last Admin: 02/18/21 08:32 Dose: 1 puffs Documented by: [id number] Admin: 02/17/21 08:43 Dose: 1 puffs Documented by: [id number] Admin: 02/16/21 09:16 Dose: 1 puffs Documented by: [id number] Glucosamine Sulfate (Glucosamine Sulfate 500 Mg Cap) 500 mg PO QAM [facility] Stop: 03/18/21 08:59 Last Admin: 02/18/21 08:34 Dose: 500 mg Documented by: [id number] Admin: 02/17/21 08:41 Dose: 500 mg Documented by: [id number] Admin: 02/16/21 09:19 Dose: 500 mg Documented by: [id number] Lidocaine (Lidocaine 5% 1 Patch) 1 patch TD HS [facility] Stop: 03/18/21 19:59 Last Admin: 02/17/21 20:24 Dose: 1 patch Documented by: [id number] Admin: 02/16/21 20:25 Dose: 1 patch Documented by: [id number] Lidocaine (Lidocaine 5% 1 Patch) 1 patch TD QAM [facility] Stop: 03/19/21 10:59 Last Admin: 02/18/21 09:18 Dose: 1 patch Documented by: [id number] Admin: 02/17/21 13:18 Dose: 1 patch Documented by: [id number] Lorazepam (Lorazepam 1 Mg Tab) 1 mg PO DAILY PRN PRN Reason: Anxiety Stop: 03/18/21 03:20 Last Admin: 02/17/21 20:24 Dose: 1 mg Documented by: [id number] Methimazole (Methimazole 5 Mg Tablet) 5 mg PO DAILY SAIDA Stop: 03/18/21 08:59 Last Admin: 02/18/21 08:33 Dose: 5 mg Documented by: [id number] Admin: 02/17/21 08:40 Dose: 5 mg Documented by: [id number] Admin: 02/16/21 10:39 Dose: 5 mg Documented by: [id number] Metoprolol Tartrate (Metoprolol Tartrate 25 Mg Tab) 12.5 mg PO BID SAIDA Stop: 03/18/21 02:28 Last Admin: 02/18/21 08:35 Dose: 12.5 mg Documented by: [id number] Admin: 02/17/21 20:25 Dose: 12.5 mg Documented by: [id number] Admin: 02/17/21 08:38 Dose: 12.5 mg Documented by: [id number] Admin: 02/16/21 20:24 Dose: 12.5 mg Documented by: [id number] Admin: 02/16/21 09:16 Dose: 12.5 mg Documented by: [id number] Admin: 02/16/21 03:13 Dose: Not Given Documented by: [id number] Miscellaneous (Remove Lidoderm Patch) 1 ea N/A DAILY [facility] Stop: 03/19/21 08:59 Last Admin: 02/18/21 09:18 Dose: 1 ea Documented by: [id number] Admin: 02/17/21 08:41 Dose: Not Given Documented by: [id number] Miscellaneous (Remove Lidoderm Patch) 1 ea N/A DAILY@2100 [facility] Stop: 03/19/21 20:59 Last Admin: 02/17/21 20:26 Dose: 1 ea Documented by: [id number] Sertraline HCl (Sertraline Hcl 50 Mg Tablet) 50 mg PO QAM [facility] Stop: 03/18/21 08:59 Last Admin: 02/18/21 08:34 Dose: 50 mg Documented by: [id number] Admin: 02/17/21 08:40 Dose: 50 mg Documented by: [id number] Admin: 02/16/21 09:17 Dose: 50 mg Documented by: [id number] Valacyclovir HCl (Valacyclovir Hcl 500 Mg Tablet) 1,000 mg PO TID SAIDA Stop: 02/23/21 08:59 Last Admin: 02/18/21 08:35 Dose: 1,000 mg Documented by: [id number] Admin: 02/17/21 20:24 Dose: 1,000 mg Documented by: [id number] Admin: 02/17/21 13:19 Dose: 1,000 mg Documented by: [id number] Admin: 02/17/21 08:39 Dose: 1,000 mg Documented by: [id number] Admin: 02/16/21 20:24 Dose: 1,000 mg Documented by: [id number] Admin: 02/16/21 15:05 Dose: 1,000 mg Documented by: [id number] Admin: 02/16/21 09:17 Dose: 1,000 mg Documented by: [id number] Vitamin B Complex (Vitamin B Complex Tab) 1 tab PO QAM [facility] Stop: 03/18/21 08:59 Last Admin: 02/18/21 08:33 Dose: 1 tab Documented by: [id number] Admin: 02/17/21 08:41 Dose: 1 tab Documented by: [id number] Admin: 02/16/21 09:17 Dose: 1 tab Documented by: [id number] Discontinued Medications Sodium Chloride (Nss 1000ml) 1,000 mls @ 999 mls/hr IV .Q1H1M ONE Stop: 02/15/21 22:23 Last Infusion: 02/15/21 22:51 Dose: 0 mls/hr Documented by: [id number] Admin: 02/15/21 21:35 Dose: 999 mls/hr Documented by: [id number] Miscellaneous (Azelastine~Order Awaiting Action) 1 ea N/A QS [facility] Stop: 03/18/21 07:59 Last Admin: 02/16/21 16:40 Dose: Not Given Documented by: [id number] Admin: 02/16/21 07:27 Dose: Not Given Documented by: [id number] Discharge Plan Visit Data Chief Complaint: Mental Health Evaluation Stated Complaint: MENTAL HEALTH EVAL ED Provider: Amaya Conroy Discharge Problem: Suicidal ideation, Diarrhea, Shingles Patient Disposition: Admitted As Inpatient Discharge Instructions Interventions: ED Discharge Assessment Last Done: 02/16/21 01:57 Discharge Problem: Diarrhea Qualifiers: Diarrhea type: unspecified type Qualified Code(s): R19.7 - Diarrhea, unspecified Shingles Qualifiers: Herpes zoster complications: without complications Qualified Code(s): B02.9 - Zoster without complications
[2021-02-16] MEDS ORDERED: NITROGLYCERIN SL 0.4 MG/TAB TAB SL PRN (02:29)
[2021-02-16] MEDS ORDERED: ALBUTEROL 0.083% NEBU SOLN 3 ML VIAL INH PRN (02:29)
[2021-02-16] MEDS ORDERED: LORATADINE 10 MG TAB PO PRN (02:29)
[2021-02-16] MEDS ORDERED: FLUTICASONE PROPIONATE NA SPR 16 GM BTL PRN (02:29)
[2021-02-16] MEDS ORDERED: CETIRIZINE HCL 10 MG TABLET PO PRN (02:29)
[2021-02-16] MEDS ORDERED: ONDANSETRON INJ 2 MG/ML 2 ML VIAL IV PRN (02:29)
[2021-02-16] MEDS ORDERED: ALBUTEROL HFA 8 GM INHALER INH PRN (02:29)
[2021-02-16] MEDS: METOPROLOL TARTRATE 25 MG TAB PO SCH ×3 (03:13→20:24)
[2021-02-16] MEDS: ACETAMINOPHEN 325 MG TAB PO PRN ×2 (03:44→17:10)
[2021-02-16] MEDS: CYCLOBENZAPRINE HCL 5 MG TAB PO PRN (03:44)
[2021-02-16 05:35] LABS: Basophils # (auto) 0.01 K/uL (0-0.2); Basophils % (auto) 0.2 %; Eosinophils # (auto) 0.07 K/uL (0-0.5); Eosinophils % (auto) 1.6 %; Hematocrit (blood only) 33.6 % (37-47); Hemoglobin 11.6 g/dL (12.0-16.0); Lymphocytes # (auto) 1.79 K/uL (1.2-3.4); Lymphocytes % (auto) 41.2 %; Mean Corpuscular Hemoglobin 30.2 pg (25-34); Mean Corpuscular Hgb Conc 34.5 g/dL (32-36); Mean Corpuscular Volume 87.5 fL (80-100); Mean Platelet Volume 9.1 fL (7.4-10.4); Monocytes # (auto) 0.57 K/uL (0.11-0.59); Monocytes % (auto) 13.1 %; Neutrophils % (auto) 43.9 %; Platelet Count 179 K/uL (130-400); RDW Coefficient of Variation 12.6 % (11.5-14.5); RDW Standard Deviation 40.4 fL (36.4-46.3); Red Blood Count 3.84 M/uL (4.2-5.4); White Blood Count 4.34 K/uL (4.8-10.8)
[2021-02-16 06:08] LABS: Albumin Level 3.1 gm/dl (3.4-5.0); Bilirubin Direct 0.3 mg/dl (0-0.2); Calcium 8.6 mg/dl (8.5-10.1); Creatinine Clr Calc Pharmacy 92.5 ml/min; Est GFR (African American) 91.3; Est GFR (Non-African American) 78.8; Magnesium 2.1 mg/dl (1.8-2.4); Potassium 3.7 mmol/L (3.5-5.1)
[2021-02-16 06:16] LABS: Thyroid Stimulating Hormone 0.008 uIu/ml (0.300-4.500); Total Protein 6.8 gm/dl (6.4-8.2)
--- NOTE | 2021-02-16 07:22 | Hospitalist Progress Note ---
Date of Service February 16, 2021 Assessment & Plan Admission and Anticipated Discharge Date Admission Date: February 15, 2021 Subjective Starting on methimazole 5mg po daily., for hyperthyroidism. CONSIDER CONSULTING ENDOCRINOLOGY. NEEDS CLOSE FOLLOWUP. Results & Data Results & Data ([facility]) Vital Signs (Past 12 Hours) Vital Signs Temp Pulse Pulse Resp BP BP Pulse Ox 02/16/21 04:50 88 02/16/21 02:51 36.6 C 90 16 129/88 94 02/16/21 01:57 92 H 16 142/73 H 97 02/15/21 21:15 95 H 18 143/73 H 95
[2021-02-16] MEDS: AZELASTINE~ORDER AWAITING ACTION SCH ×2 (07:27→16:40)
[2021-02-16] MEDS: FLUTICASONE/VILANTEROL 200/25MCG 14 PUFFS/INHALER INH SCH (09:16)
[2021-02-16] MEDS: SERTRALINE HCL 50 MG TABLET PO SCH (09:17)
[2021-02-16] MEDS: valACYclovir HCL 500 MG TABLET PO SCH ×3 (09:17→20:24)
[2021-02-16] MEDS: VITAMIN B COMPLEX TAB PO SCH (09:17)
[2021-02-16] MEDS: ASCORBIC ACID 500 MG TAB PO SCH (09:18)
[2021-02-16] MEDS: GLUCOSAMINE SULFATE 500 MG CAP PO SCH (09:19)
[2021-02-16] MEDS: methIMAzole 5 MG TABLET PO SCH (10:39)
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
[2021-02-16] MEDS: LIDOCAINE 5% 1 PATCH TD SCH (20:25)
[2021-02-16] MEDS: AMITRIPTYLINE HCL 25 MG TAB PO SCH (20:25)
--- NOTE | 2021-02-17 05:40 | Electrocardiogram Report ---
Test Reason : Blood Pressure : / mmHG Vent. Rate : 100 BPM Atrial Rate : 100 BPM P-R Int : 106 ms QRS Dur : 082 ms QT Int : 342 ms P-R-T Axes : 040 045 048 degrees QTc Int : 441 ms Sinus rhythm with short KS Otherwise normal ECG When compared with ECG of 11-OCT-2020 09:44, No significant change was found Confirmed by Ravinder Mendoza ([id number]) on 02/17/2021 5:40:11 AM Referred By: REFERRED SELF Confirmed By:Ravinder Mendoza
[2021-02-17] MEDS: METOPROLOL TARTRATE 25 MG TAB PO SCH ×2 (08:38→20:25)
[2021-02-17] MEDS: valACYclovir HCL 500 MG TABLET PO SCH ×3 (08:39→20:24)
[2021-02-17] MEDS: SERTRALINE HCL 50 MG TABLET PO SCH (08:40)
[2021-02-17] MEDS: methIMAzole 5 MG TABLET PO SCH (08:40)
[2021-02-17] MEDS: VITAMIN B COMPLEX TAB PO SCH (08:41)
[2021-02-17] MEDS: GLUCOSAMINE SULFATE 500 MG CAP PO SCH (08:41)
[2021-02-17] MEDS: ASCORBIC ACID 500 MG TAB PO SCH (08:41)
[2021-02-17] MEDS: FLUTICASONE/VILANTEROL 200/25MCG 14 PUFFS/INHALER INH SCH (08:43)
[2021-02-17] MEDS ORDERED: OMEGA-3 (PURIFIED FISH OIL) 1 GM CAP PO SCH (09:00)
--- NOTE | 2021-02-17 11:31 | Communication Note ---
Date of Service: February 17, 2021 Patient admitted with diarrhea, anxiety, depression, suicidal ideation. Hyperactive thyroid, hyperthyroidism noted on lab: TSH 0.006/with elevated free T4 2.27 Patient started with antithyroid treatment with methimazole 5 mg twice daily, beta-salma metoprolol 12.5 mg twice daily Further thyroid function test studies, thyroid stimulating hormone TSI /antithyroid antibody/antithyroid microsomal antibody/thyroid ultrasound ordered Patient will need repeat thyroid function test check in 4 to 6 weeks, Needs follow-up referral to endocrinology in outpatient Patient's family physician will be updated regarding thyroid function test medication change and endocrinology referral. Patient is still remains significant threat to herself,-wants voluntary to commit herself to inpatient psychiatric unit seeking help Afraid to return back to home which can provoke her with similar situation led to hospital admission. Patient is medically stable to be discharged from hospital medicine. Plan of care discussed with on-call psychiatric team At present [facility] inpatient psychiatric unit 3 so does not have any bed available Referral made for other psychiatric institution for inpatient admission Patient will stay under hospitalist service, till psychiatric bed available. Shingles: Rash started on Tuesday 02/13( Day #4 ) , on Valtrex since 02/15 ( Day# 2 ) -needs total 7 days of tx with antiviral Patient presents with shingles flare (first time) with mostly left upper cervical dermatome, rash involves to upper chest wall to left shoulder and back. Patient is currently on Valtrex, on Lidoderm patch for painful rash(patient reports improvement of burning and pain with Lidoderm patch) Patient has a shingles rash more than 4 days Isolation precaution guideline while being admitted in the community psychiatric unit: pt should keep area of rash covered , wash hands with soap and water as much as possible -specially after touching the area of rash Patient should avoid contact with person who did not had chickenpox in the past, someone who is , low weight babies , immunocompromised(history of cancer on chemo, HIV etc) Svetlana Mrogan MD
--- NOTE | 2021-02-17 11:39 | Communication Note ---
Date of Service: February 17, 2021 Outpatient Records from [facility] Received and Reviewed: Diagnoses: - Anxiety disorder, unspecified - Major depressive disorder, recurrent, severe, without psychotic features Medications: - Sertraline and lorazepam - doses not listed 11/18/2020 - Medication Check - Pt reported improvement in mood and reduced stressors. Planning a move to a smaller apartment. Using lorazepam only occasionally. No medication changes, follow-up in 10-12 weeks. 01/18/2021 - Medication Check - Increased anxiety and depression in the past month - upcoming anniversary of her son's (to suicide). Continuing to take lorazepam for anxiety as needed. Still felt medication were helpful. Discussed topics of grief and coping.
[2021-02-17] MEDS: LIDOCAINE 5% 1 PATCH TD SCH ×2 (13:18→20:24)
--- NOTE | 2021-02-17 14:05 | Ultrasound Report ---
US thyroid CLINICAL HISTORY: hyperthyroidism COMPARISON STUDY: No previous studies for comparison. FINDINGS: The right lobe the thyroid measures 56 x 20 x 16 mm. The left lobe measured 52 x 17 x 16 mm. Both lobes were heterogeneous in echotexture. There is an ill-defined heterogeneous focus within the lower pole of the right lobe. This is isoechoi c to thyroid gland contains solid and cystic spaces as well as microcalcifications. It is unclear whe ther this represents a discrete nodule or simply a heterogeneous portion of the gland. This measures approximately 2 cm. Given the focal nature of this finding and the presence of calcifications, fine-n eedle aspiration sampling is recommended in follow-up. IMPRESSION: 1. Ill-defined heterogeneous focus within the lower pole the right lobe of the thyroid containing carol rocalcifications. Fine-needle aspiration sampling is recommended in follow-up ACT 112: Positive. There are findings on this exam that require communication between the performing entity and the patient following Patient Test Result Information Act ([place] Act 112) guidelines. Electronically signed by: Scot Andrews M.D. 02/17/2021 2:03 PM
--- NOTE | 2021-02-17 18:26 | Hospitalist Progress Note ---
Date of Service February 17, 2021 Assessment & Plan (1) Suicidal ideation: Patient admitted with suicidal ideation, with definitive plan. Appreciate input from psychiatry, Continue one-to-one suicidal watch. Patient will need admission to inpatient psych unit, referral made to m[facility] Jewell: It with the shingles rash, On Valtrex complete total 7 days of treatment. Lidoderm patch as needed for pain Hypothyroidism: New diagnosis, TSH level undetectable, with elevated T4 level Patient sent mood labile, diarrhea, lack of energy, lack of sleep could be secondary to hyper thyroid function Started on methimazole 5 mg daily Thyroid ultrasound shows no significant nodule, Need outpatient thyroid uptake study Thyroid antibody test ordered Will need repeat TSH level check in 4 to 6 weeks to adjust antithyroid meds Will need endocrine follow-up as an outpatient Patient primary care physician Dr. Stern updated Fibromyalgia: Chronic issue, continue home meds/muscle relaxants Diarrhea: Possible secondary to hyperthyroidism stool C. difficile negative Treatment of hyperactive thyroid as outlined above As needed Imodium ordered Disposition: Medically stable Patient will be discharged to inpatient psych unit when bed available Admission and Anticipated Discharge Date Admission Date: February 15, 2021 Subjective Follow-up visit for shingles, suicidal ideation, hypothyroidism She reports her mood is stable, denies of any hopelessness or suicidal ideation Shingles rash/pain on left shoulder has improved after starting on Lidoderm patch Complains of muscle spasm on back : Thinks this is due to her fibromyalgia flare No fever or chills, no shortness of breath, no dizzy spell or lightheadedness Review of Systems Review of Systems: All systems reviewed & are unremarkable except as noted in Subjective Physical Exam Physical Exam: Physical exam: General: No acute distress, alert awake oriented x3 HEENT: PERRLA, EOMI, Heart: Regular S1-S2, no carotid bruit, no JVD, no lower extremity edema Lungs: Clear to auscultate, no wheeze or rales Abdomen: Soft nontender, no organomegaly Extremity: No cyanosis, no deformity, normal strength 5 out of 5 with upper and lower Neuro: No focal neurological deficit normal speech, normal visual field, Motor strength : normal both upper and lower extremity, sensation intact Psych: Alert awake oriented x3, normal affect Results & Data Results & Data ([facility]) Vital Signs (Past 12 Hours) Vital Signs Temp Pulse Resp BP Pulse Ox 02/17/21 15:11 36.7 C 87 18 112/75 97 02/17/21 07:27 37 C 80 20 111/72 98
[2021-02-17] MEDS ORDERED: LOPERAMIDE HCL 2 MG CAP PO PRN (18:28)
[2021-02-17] MEDS: AMITRIPTYLINE HCL 25 MG TAB PO SCH (20:24)
[2021-02-17] MEDS: LORazepam 1 MG TAB PO PRN (20:24)
[2021-02-17] MEDS: CYCLOBENZAPRINE HCL 5 MG TAB PO PRN (21:39)
[2021-02-18] MEDS: FLUTICASONE/VILANTEROL 200/25MCG 14 PUFFS/INHALER INH SCH (08:32)
[2021-02-18] MEDS: methIMAzole 5 MG TABLET PO SCH (08:33)
[2021-02-18] MEDS: VITAMIN B COMPLEX TAB PO SCH (08:33)
[2021-02-18] MEDS: GLUCOSAMINE SULFATE 500 MG CAP PO SCH (08:34)
[2021-02-18] MEDS: SERTRALINE HCL 50 MG TABLET PO SCH (08:34)
[2021-02-18] MEDS: ASCORBIC ACID 500 MG TAB PO SCH (08:34)
[2021-02-18] MEDS: valACYclovir HCL 500 MG TABLET PO SCH ×3 (08:35→21:53)
[2021-02-18] MEDS: METOPROLOL TARTRATE 25 MG TAB PO SCH ×2 (08:35→21:54)
[2021-02-18] MEDS: CYCLOBENZAPRINE HCL 5 MG TAB PO PRN ×2 (08:36→16:18)
[2021-02-18] MEDS: LIDOCAINE 5% 1 PATCH TD SCH ×2 (09:18→21:56)
--- NOTE | 2021-02-18 13:44 | Psychiatric Progress Note ---
Date of Service February 18, 2021 Impression / Recommendations Impression 55 yo female with longstanding depression with seasonal component presented with SI with plan, dx active herpes zoster with lesions, now medically cleared for 201 admission when facility identified. Patient continues to meet inpatient criteria and should remain on 1-on-1 pending placement. Risk Factors Assessment Do You Have Access To A Gun?: No Interval History Chief Complaint "I still have these waves of feeling overwhelmed". Review of Systems Notes denies TRIPATHI, tachy, GI se. eating and drinking well. Subjective Subjective Patient was seen & assessed and interval progress reviewed with liaison nurse, chart review. Patient is awaiting placement on 201 for SI with plan to OD in hospital parking lot or drive car off the road. Was dx with shingles and treated on medical floor with contact isolation precautions. Has been cooperative with 1-on-1 on floor as pain subsides. She doesn't feel she can contract for safety outside of hospital as crying and SI last pm and "I don't know what to do, I can't cope". There was some discussion about taper Zoloft and TCA in favor of Cymbalta trial but she does not want to initiate this on med floor. Physical Exam Psychiatric Orientation: alert, oriented x 3 and cooperative Apperance: appropriately groomed Eye Contact: good eye contact Motor Behavior: no abnormal motor movements (observed while laying in bed) Speech: normal rate/rhythm/volume of speech (though very talkative) Affect: + depressed affect Mood: + anxious mood Thought Process: goal directed thought process Thought Content: reality based without delusions and + hopelessness Suicidal Thoughts: denies suicidal intent (at least in hospital setting; can't contract for safety for discharge); + reports suicidal thoughts and + reports suicidal plan Homicidal Thoughts: denies homicidal thoughts Hallucinations: no auditory hallucinations and no visual hallucinations Cognition: attention grossly intact and language grossly intact Estimated Intelligence: consistent with education level Insight: + fair insight Judgement: + fair judgement Vital Signs (Past 24 Hours) Last Vital Signs Temp 36.8 C 02/18/21 07:30 Pulse 86 02/18/21 07:30 Resp 18 02/18/21 07:30 BP 123/69 02/18/21 07:30 Pulse Ox 96 02/18/21 07:30 Results & Data ([facility]) Current Inpatient Medications Current Inpatient Medications: Current Inpatient Medications Acetaminophen (Acetaminophen 325 Mg Tab) 650 mg PO Q4H PRN PRN Reason: Pain or Fever Stop: 03/18/21 02:28 Last Admin: 02/16/21 17:10 Dose: 650 mg Documented by: Albuterol (Albuterol 0.083% Nebu Soln 3 Ml Vial) 2.5 mg INH Q4 PRN PRN Reason: Wheezing Stop: 03/18/21 02:28 Albuterol (Albuterol Hfa 8 Gm Inhaler) 2 puffs INH Q4 PRN PRN Reason: Shortness Of Breath Stop: 03/18/21 02:28 Amitriptyline HCl (Amitriptyline Hcl 25 Mg Tab) 25 mg PO [facility] Stop: 03/18/21 20:59 Last Admin: 02/17/21 20:24 Dose: 25 mg Documented by: Ascorbic Acid (Ascorbic Acid 500 Mg Tab) [facility] Stop: 03/18/21 08:59 Last Admin: 02/18/21 08:34 Dose: 750 mg Documented by: Cetirizine HCl (Cetirizine Hcl 10 Mg Tablet) 10 mg PO DAILY PRN PRN Reason: Allergic Reaction Stop: 03/18/21 02:28 Cyclobenzaprine HCl (Cyclobenzaprine Hcl 5 Mg Tab) 5 mg PO BID PRN PRN Reason: Muscle Spasticity Stop: 03/18/21 02:28 Last Admin: 02/18/21 08:36 Dose: 5 mg Documented by: Ergocalciferol (Ergocalciferol 50,000 Units 1250 Mcg Cap) 50,000 units PO Pete@0900 [facility] Stop: 03/21/21 08:59 Fluticasone Propionate (Fluticasone Propionate Na Spr 16 Gm Btl) 2 sprays NA DAILY PRN PRN Reason: Nasal Congestion Stop: 03/18/21 02:28 Fluticasone/Vilanterol (Fluticasone/Vilanterol 200/25mcg 14 Puffs/Inhaler) 1 puffs INH QAM [facility] Stop: 03/18/21 08:59 Last Admin: 02/18/21 08:32 Dose: 1 puffs Documented by: Glucosamine Sulfate (Glucosamine Sulfate 500 Mg Cap) 500 mg PO QAM [facility] Stop: 03/18/21 08:59 Last Admin: 02/18/21 08:34 Dose: 500 mg Documented by: Lidocaine (Lidocaine 5% 1 Patch) 1 patch TD HS [facility] Stop: 03/18/21 19:59 Last Admin: 02/17/21 20:24 Dose: 1 patch Documented by: Lidocaine (Lidocaine 5% 1 Patch) 1 patch TD QAM [facility] Stop: 03/19/21 10:59 Last Admin: 02/18/21 09:18 Dose: 1 patch Documented by: Loperamide HCl (Loperamide Hcl 2 Mg Cap) 2 mg PO Q8 PRN PRN Reason: Diarrhea Stop: 03/19/21 18:27 Loratadine (Loratadine 10 Mg Tab) 10 mg PO HS PRN PRN Reason: Allergy Symptoms Stop: 03/18/21 02:28 Lorazepam (Lorazepam 1 Mg Tab) 1 mg PO DAILY PRN PRN Reason: Anxiety Stop: 03/18/21 03:20 Last Admin: 02/17/21 20:24 Dose: 1 mg Documented by: Methimazole (Methimazole 5 Mg Tablet) 5 mg PO DAILY [facility] Stop: 03/18/21 08:59 Last Admin: 02/18/21 08:33 Dose: 5 mg Documented by: Metoprolol Tartrate (Metoprolol Tartrate 25 Mg Tab) 12.5 mg PO BID [facility] Stop: 03/18/21 02:28 Last Admin: 02/18/21 08:35 Dose: 12.5 mg Documented by: Miscellaneous (Remove Lidoderm Patch) 1 ea N/A DAILY [facility] Stop: 03/19/21 08:59 Last Admin: 02/18/21 09:18 Dose: 1 ea Documented by: Miscellaneous (Remove Lidoderm Patch) 1 ea N/A DAILY@2100 [facility] Stop: 03/19/21 20:59 Last Admin: 02/17/21 20:26 Dose: 1 ea Documented by: Nitroglycerin (Nitroglycerin Sl 0.4 Mg/Tab Tab) 0.4 mg SL UD PRN PRN Reason: Chest Pain Stop: 03/18/21 02:28 Ondansetron HCl (Ondansetron Inj 2 Mg/Ml 2 Ml Vial) 4 mg IV Q6H PRN PRN Reason: Nausea Stop: 03/18/21 02:28 Sertraline HCl (Sertraline Hcl 50 Mg Tablet) 50 mg PO QAM [facility] Stop: 03/18/21 08:59 Last Admin: 02/18/21 08:34 Dose: 50 mg Documented by: Valacyclovir HCl (Valacyclovir Hcl 500 Mg Tablet) 1,000 mg PO TID [facility] Stop: 02/23/21 08:59 Last Admin: 02/18/21 13:15 Dose: 1,000 mg Documented by: Vitamin B Complex (Vitamin B Complex Tab) 1 tab PO QAM [facility] Stop: 03/18/21 08:59 Last Admin: 02/18/21 08:33 Dose: 1 tab Documented by: Mental Health & Subst Abuse Tx Psychiatrist Name of Psychiatrist: Dr. Marina Lopez, @ [facility] Psychiatrist's Date of Appointment with Psychiatrist: 02/22/21 Time of Appointment with Psychiatrist: 10:30 Psychiatrist Release of Information: Obtained, Reviewed and Signed Therapist Name of Therapist: [facility] The[facility]ist[facility] Date of Therapist Appointment: 02/23/21 Time of Therapist Appointment: 4 p.m. Therapist Release of Information: Obtained, Reviewed and Signed Farm Machine Operator Name of Farm Machine Operator: Cassi @ [facility]
[2021-02-18 15:36] LABS: Marijuana Quant, GCMS Urine 406 ng/mL (<5)
--- NOTE | 2021-02-18 16:16 | Hospitalist Progress Note ---
Date of Service February 18, 2021 Assessment & Plan (1) Suicidal ideation: Patient admitted with suicidal ideation, with definitive plan. Appreciate input from psychiatry, Continue one-to-one suicidal watch. Patient will need admission to inpatient psych unit, referral made to [facility]: It with the shingles rash, On Valtrex complete total 7 days of treatment. Lidoderm patch ordered -reports of improvement of pain at shingles rash site Hypothyroidism: New diagnosis, TSH level undetectable, with elevated T4 level Patient sent mood labile, diarrhea, lack of energy, lack of sleep could be secondary to hyper thyroid function Started on methimazole 5 mg daily Thyroid ultrasound shows no significant nodule, Need outpatient thyroid uptake study Thyroid antibody test ordered Will need repeat TSH level check in 4 to 6 weeks to adjust antithyroid meds Will need endocrine follow-up as an outpatient Patient primary care physician Dr. Stern updated Fibromyalgia: Chronic issue, continue home meds/muscle relaxants Diarrhea: Possible secondary to hyperthyroidism stool C. difficile negative Treatment of hyperactive thyroid as outlined above As needed Imodium ordered Disposition: Medically stable Patient will be discharged to inpatient psych unit when bed available Admission and Anticipated Discharge Date Admission Date: February 15, 2021 Subjective Follow-up visit for shingles, suicidal ideation, hypothyroidism pt is waiting for bed availability at inpatient [facility] unit admitted with suicidal ideation mood stable , offered no new complain no complain of fever or chills no cough or SOB Physical Exam Physical Exam: Physical exam: General: No acute distress, alert awake oriented x3 HEENT: PERRLA, EOMI, Heart: Regular S1-S2, no carotid bruit, no JVD, no lower extremity edema Lungs: Clear to auscultate, no wheeze or rales Abdomen: Soft nontender, no organomegaly Extremity: No cyanosis, no deformity, normal strength 5 out of 5 with upper and lower Neuro: No focal neurological deficit normal speech, normal visual field, Motor strength : normal both upper and lower extremity, sensation intact Psych: Alert awake oriented x3, normal affect Results & Data Results & Data ([facility]) Vital Signs (Past 12 Hours) Vital Signs Temp Pulse Resp BP Pulse Ox 02/18/21 14:50 36.6 C 86 18 137/79 96 02/18/21 07:30 36.8 C 86 18 123/69 96 02/18/21 06:21 36.4 C L 85 16 111/67 94
[2021-02-18] MEDS: AMITRIPTYLINE HCL 25 MG TAB PO SCH ×2 (21:55→22:10)
[2021-02-19] MEDS: ACETAMINOPHEN 325 MG TAB PO PRN (04:01)
[2021-02-19] MEDS: FLUTICASONE/VILANTEROL 200/25MCG 14 PUFFS/INHALER INH SCH (07:55)
[2021-02-19] MEDS: GLUCOSAMINE SULFATE 500 MG CAP PO SCH (07:55)
[2021-02-19] MEDS: methIMAzole 5 MG TABLET PO SCH (07:56)
[2021-02-19] MEDS: SERTRALINE HCL 50 MG TABLET PO SCH (07:57)
[2021-02-19] MEDS: METOPROLOL TARTRATE 25 MG TAB PO SCH ×2 (07:57→20:28)
[2021-02-19] MEDS: ASCORBIC ACID 500 MG TAB PO SCH (07:58)
[2021-02-19] MEDS: VITAMIN B COMPLEX TAB PO SCH (08:00)
[2021-02-19] MEDS: valACYclovir HCL 500 MG TABLET PO SCH ×3 (08:00→20:27)
[2021-02-19] MEDS: LIDOCAINE 5% 1 PATCH TD SCH ×2 (08:20→20:18)
[2021-02-19] MEDS ORDERED: ERGOCALCIFEROL 50,000 UNITS 1250 MCG CAP PO SCH (09:00)
--- NOTE | 2021-02-19 11:13 | Communication Note ---
Date of Service: February 19, 2021 received update from Infection control at [facility] as pt has disseminated shingles ( rash involving 3 or more dermatomes ) and none of them are crusted needs to be in airborne isolation till -all the lesions are crusted . pt is transferred to airborne isolation /negative pressure room called pt over phone , explained the reason for isolation precaution pt is upset that it may delay her placement to inpatient psych unit counselling provided regarding isolation precaution protocol @ [facility] -pt is agreeable will update Psychiatry Liaison as well Svetlana Morgan MD
--- NOTE | 2021-02-19 11:16 | Communication Note ---
Date of Service: February 19, 2021 was preparing to accept patient to unit, liaison spoke with ID nurse, patient had lesions across multiple dermatomes and not adequate crusting for appropriate ID precautions on our unit. Patient has declined med changes until able to consult with outpatient provider so I will contact [facility] in the am as likely taper Zoloft and tCA in favor of a trial of Cymbalta. I have asked liaisons to round regularly on patient and provide therapeutic materials such as patient handbook as patient remains unable to safety plan per assessment this earlier am.
--- NOTE | 2021-02-19 15:39 | Hospitalist Progress Note ---
Date of Service February 19, 2021 Assessment & Plan (1) Suicidal ideation: Patient admitted with suicidal ideation, with definitive plan ( wanted to overdose with sleep meds in hospital parking lot ) Appreciate input from psychiatry, Continue one-to-one suicidal watch. Patient will need admission to inpatient psych unit, referral made to [facility]( psych unit ) /awaiting bed availability Shingles: presented painful shingles rash On Valtrex complete total 7 days of treatment. Lidoderm patch ordered -reports of improvement of pain at shingles rash site needs airborne isolation till rashes are crusted HYPERTHYROIDISM : New diagnosis, TSH level undetectable, with elevated T4 level presented with labile mood , ( lots of crying spell at home ) , diarrhea, lack of energy, lack of sleep -hx of depression /worsening of symptoms possible due to underlying Hyperthyroidism Started on methimazole 5 mg daily Thyroid ultrasound shows no significant nodule, Need outpatient thyroid uptake study Thyroid antibody test ordered-results pending Will need repeat TSH level check in 4 to 6 weeks to adjust antithyroid meds Will need endocrine follow-up as an outpatient Patient primary care physician Dr. Stern updated Fibromyalgia: Chronic issue, continue home meds/muscle relaxants Diarrhea: pt reports improvement of symptoms Possible secondary to hyperthyroidism stool C. difficile negative Treatment of hyperactive thyroid as outlined above As needed Imodium ordered Disposition: Medically stable Patient will be discharged to inpatient psych unit when bed available Admission and Anticipated Discharge Date Admission Date: February 15, 2021 Subjective Follow-up visit for shingles, suicidal ideation,Hyperthyroidism pt is placed in airborne precaution for active shingles rash ( weeping /red ) involving multiple dermatome at left cervical and left upper ext area date of rash eruption on Saturday02/13/21 reports of improvement of pain and burning sensation of shingle rash , utilizing Lidoderm patch no fever or chills offers no new discomfort placed on Airborne isolation per infection Guideline @ [facility] pt is waiting for bed availability at inpatient psych unit /frustrated that with isolation her chance of getting into psych unit will be delayed admitted with suicidal ideation /not safe to discharge home , as pt still very emotionally labile , wants to commit herself to in patient psych voluntarily -seeking help pt will be under medicine Hospitalist service till accepted at in patient psych unit Review of Systems Review of Systems: All systems reviewed & are unremarkable except as noted in Subjective Physical Exam Constitutional: WD/WN, vitals as above Eyes: PERRL, conjunctivae normal, anicteric sclerae ENMT: external ear and nose normal, oropharynx normal Neck: vascular erythematous rash involving left side of neck , left upper chest wall /left shoulder , left upper back no crusting noted Respiratory: normal respiratory effort, lungs clear to auscultation Cardiovascular: RRR, no murmur, no edema Gastrointestinal (Abdomen): normal bowel sounds, soft, nontender, no hepatosplenomegaly Musculoskeletal: no cyanosis or clubbing, extremities motor strength 5/5 Skin: + rash and + lesion (vesicular lesion /shingle rash on neck and left upper chest wall , ) Neurologic: PERRL, EOMI, accommodation nl, no face palsy, no dysarthria Psychiatric: A+Ox3, euthymic affect Results & Data Results & Data ([facility]) Vital Signs (Past 12 Hours) Vital Signs Temp Pulse Resp BP Pulse Ox 02/19/21 15:10 78 18 125/54 L 98 02/19/21 09:00 36.4 C L 87 18 154/83 H 95
[2021-02-19] MEDS: CYCLOBENZAPRINE HCL 5 MG TAB PO PRN ×2 (17:36→22:24)
[2021-02-19] MEDS: AMITRIPTYLINE HCL 25 MG TAB PO SCH (20:24)
[2021-02-20] MEDS: LORazepam 1 MG TAB PO PRN (03:52)
[2021-02-20] MEDS: GLUCOSAMINE SULFATE 500 MG CAP PO SCH (08:30)
[2021-02-20] MEDS: VITAMIN B COMPLEX TAB PO SCH (08:30)
[2021-02-20] MEDS: ASCORBIC ACID 500 MG TAB PO SCH (08:30)
[2021-02-20] MEDS: SERTRALINE HCL 50 MG TABLET PO SCH (08:31)
[2021-02-20] MEDS: valACYclovir HCL 500 MG TABLET PO SCH ×3 (08:31→20:25)
[2021-02-20] MEDS: methIMAzole 5 MG TABLET PO SCH (08:31)
[2021-02-20] MEDS: METOPROLOL TARTRATE 25 MG TAB PO SCH ×2 (08:32→20:26)
[2021-02-20] MEDS: FLUTICASONE/VILANTEROL 200/25MCG 14 PUFFS/INHALER INH SCH (08:32)
[2021-02-20] MEDS: LIDOCAINE 5% 1 PATCH TD SCH ×2 (08:33→20:30)
--- NOTE | 2021-02-20 13:34 | Communication Note ---
Date of Service: February 20, 2021 patient remains in isolation, states that she has labile mood in that tearful for some time last night after BP cuff malfunction caused discomfort. Reviewed that I participated in treatment planning with social work, nursing, and rec therapy and we will continue to provide support as able. Reports somewhat in better spirits today but remains hopeless/helpless with suicidal thoughts in that "nothing has changed". Doesn't think she can tolerate med changes today with other issues, pain and reviewed that I would speak with her outpatient prescriber. She was appreciative that one of her aides is actually the daughter of the woman she found (homecare provider) as helped with healing. Spoke with Jerilyn Faust who confirms that there was discussion around cross taper Zoloft to Cymbalta, she did not have an opinion on TCA as another prescriber. Reviewed BP. She reported concerns for patient given anniversary of son's suicide. She would support "any and all" changes patient is willing to implement here. Reviewed that currently unclear when she will be cleared for psych inpatient. Historically patient is sensitive to med changes.
[2021-02-20] MEDS ORDERED: hydrOXYzine HCl 25 MG TAB PO PRN (14:17)
[2021-02-20] MEDS ORDERED: LORazepam 1 MG/2 ML VIAL IV PRN (14:17)
[2021-02-20] MEDS ORDERED: LORazepam 0.5 MG TAB PO PRN (14:18)
[2021-02-20] MEDS: CYCLOBENZAPRINE HCL 5 MG TAB PO PRN ×2 (14:47→22:48)
--- NOTE | 2021-02-20 17:54 | Hospitalist Progress Note ---
Date of Service February 20, 2021 Assessment & Plan (1) Suicidal ideation: Patient admitted with suicidal ideation, with definitive plan ( wanted to overdose with sleep meds in hospital parking lot ) Appreciate input from psychiatry, on one-to-one suicidal watch. Patient will need admission to inpatient psych unit, referral made to the [facility]( psych unit ) /awaiting bed availability Shingles: presented painful shingles rash On Valtrex complete total 7 days of treatment. Lidoderm patch ordered -reports of improvement of pain at shingles rash site -some rashes appears to form Crusts needs airborne isolation till rashes are crusted HYPERTHYROIDISM : New diagnosis, TSH level undetectable, with elevated T4 level presented with labile mood , ( lots of crying spell at home ) , diarrhea, lack of energy, lack of sleep -hx of depression /worsening of symptoms possible due to underlying Hyperthyroidism Started on methimazole 5 mg daily Thyroid ultrasound shows no significant nodule, Need outpatient thyroid uptake study Thyroid antibody test ordered-r Will need repeat TSH level check in 4 to 6 weeks to adjust antithyroid meds Will need endocrine follow-up as an outpatient Patient primary care physician Dr. Stern updated Fibromyalgia: Chronic issue, continue home meds/muscle relaxants Diarrhea: pt reports improvement of symptoms Possible secondary to hyperthyroidism stool C. difficile negative Treatment of hyperactive thyroid as outlined above As needed Imodium ordered Disposition: Medically stable Patient will be discharged to inpatient psych unit when bed available Admission and Anticipated Discharge Date Admission Date: February 15, 2021 Subjective Follow-up visit for shingles, suicidal ideation,Hyperthyroidism noted to have some crusting of shingles rash in ant chest wall no fever or chills waiting for placement at inpatient psych pt is waiting for bed availability at inpatient psych unit /frustrated that with isolation her chance of getting into psych unit will be delayed admitted with suicidal ideation /not safe to discharge home , as pt still very emotionally labile , wants to commit herself to in patient psych voluntarily -seeking help pt will be under medicine Hospitalist service till accepted at in patient psych unit Review of Systems Review of Systems: All systems reviewed & are unremarkable except as noted in Subjective Physical Exam Physical Exam: Physical exam: General: No acute distress, alert awake oriented x3 HEENT: PERRLA, EOMI, Heart: Regular S1-S2, no carotid bruit, no JVD, no lower extremity edema Lungs: Clear to auscultate, no wheeze or rales Abdomen: Soft nontender, no organomegaly Extremity: No cyanosis, no deformity, normal strength 5 out of 5 with upper and lower Neuro: No focal neurological deficit normal speech, normal visual field, Motor strength : normal both upper and lower extremity, sensation intact Psych: Alert awake oriented x3, normal affect Constitutional: WD/WN, vitals as above Eyes: PERRL, conjunctivae normal, anicteric sclerae ENMT: external ear and nose normal, oropharynx normal Respiratory: normal respiratory effort, lungs clear to auscultation Cardiovascular: RRR, no murmur, no edema Gastrointestinal (Abdomen): normal bowel sounds, soft, nontender, no hepatosplenomegaly Musculoskeletal: no cyanosis or clubbing, extremities motor strength 5/5 Skin: + rash and + lesion (vesicular lesion /shingle rash on neck and left upper chest wall , ) Neurologic: PERRL, EOMI, accommodation nl, no face palsy, no dysarthria Psychiatric: A+Ox3, euthymic affect Results & Data Results & Data ([facility]) Vital Signs (Past 12 Hours) Vital Signs Temp Pulse Resp BP Pulse Ox 02/20/21 14:50 37.1 C 85 18 127/84 97 02/20/21 08:17 97 H 119/85 02/20/21 07:03 36.5 C 81 18 117/80 96
[2021-02-20] MEDS: AMITRIPTYLINE HCL 25 MG TAB PO SCH (20:26)
[2021-02-21] MEDS: FLUTICASONE/VILANTEROL 200/25MCG 14 PUFFS/INHALER INH SCH (08:47)
[2021-02-21] MEDS: GLUCOSAMINE SULFATE 500 MG CAP PO SCH (08:48)
[2021-02-21] MEDS: ASCORBIC ACID 500 MG TAB PO SCH (08:48)
[2021-02-21] MEDS: VITAMIN B COMPLEX TAB PO SCH (08:48)
[2021-02-21] MEDS: valACYclovir HCL 500 MG TABLET PO SCH ×3 (08:48→21:28)
[2021-02-21] MEDS: SERTRALINE HCL 50 MG TABLET PO SCH (08:48)
[2021-02-21] MEDS: LIDOCAINE 5% 1 PATCH TD SCH ×2 (08:48→21:24)
[2021-02-21] MEDS: methIMAzole 5 MG TABLET PO SCH (08:48)
[2021-02-21] MEDS: METOPROLOL TARTRATE 25 MG TAB PO SCH ×2 (08:49→21:25)
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
[2021-02-21 17:02] LABS: Microsomal Ab 1 IU/mL (<9); TSI <89 % baseline (<140); Thyroglobulin Antibodies <1 IU/mL (< or = 1)
--- NOTE | 2021-02-21 17:18 | Hospitalist Progress Note ---
Date of Service February 21, 2021 Assessment & Plan (1) Suicidal ideation: Patient admitted with suicidal ideation, with definitive plan ( wanted to overdose with sleep meds in hospital parking lot ) Appreciate input from psychiatry, on one-to-one suicidal watch. Patient will need admission to inpatient psych unit, referral made to the [facility]( psych unit ) /awaiting bed availability Shingles: presented painful shingles rash On Valtrex complete total 7 days of treatment. Lidoderm patch ordered -reports of improvement of pain at shingles rash site -some rashes appears to form Crusts needs airborne isolation till rashes are crusted HYPERTHYROIDISM : New diagnosis, TSH level undetectable, with elevated T4 level presented with labile mood , ( lots of crying spell at home ) , diarrhea, lack of energy, lack of sleep -hx of depression /worsening of symptoms possible due to underlying Hyperthyroidism Started on methimazole 5 mg daily Thyroid ultrasound shows no significant nodule, Need outpatient thyroid uptake study Thyroid antibody test ordered-r Will need repeat TSH level check in 4 to 6 weeks to adjust antithyroid meds Will need endocrine follow-up as an outpatient Patient primary care physician Dr. Stern updated Fibromyalgia: Chronic issue, continue home meds/muscle relaxants Diarrhea: pt reports improvement of symptoms Possible secondary to hyperthyroidism stool C. difficile negative Treatment of hyperactive thyroid as outlined above As needed Imodium ordered Disposition: Medically stable Patient will be discharged to inpatient psych unit when bed available Admission and Anticipated Discharge Date Admission Date: February 15, 2021 Subjective Follow-up visit for shingles, suicidal ideation,Hyperthyroidism noted to have some crusting of shingles rash in ant chest wall no fever or chills waiting for placement at inpatient psych pt is waiting for bed availability at inpatient psych unit /frustrated that with isolation her chance of getting into psych unit will be delayed admitted with suicidal ideation /not safe to discharge home , as pt still very emotionally labile , wants to commit herself to in patient psych voluntarily -seeking help pt will be under medicine Hospitalist service till accepted at in patient psych unit Physical Exam Physical Exam: Physical exam: General: No acute distress, alert awake oriented x3 HEENT: PERRLA, EOMI, Heart: Regular S1-S2, no carotid bruit, no JVD, no lower extremity edema Lungs: Clear to auscultate, no wheeze or rales Abdomen: Soft nontender, no organomegaly Extremity: No cyanosis, no deformity, normal strength 5 out of 5 with upper and lower Neuro: No focal neurological deficit normal speech, normal visual field, Motor strength : normal both upper and lower extremity, sensation intact Psych: Alert awake oriented x3, normal affect Constitutional: WD/WN, vitals as above Eyes: PERRL, conjunctivae normal, anicteric sclerae ENMT: external ear and nose normal, oropharynx normal Respiratory: normal respiratory effort, lungs clear to auscultation Cardiovascular: RRR, no murmur, no edema Gastrointestinal (Abdomen): normal bowel sounds, soft, nontender, no hepatosplenomegaly Musculoskeletal: no cyanosis or clubbing, extremities motor strength 5/5 Skin: + rash and + lesion (vesicular lesion /shingle rash on neck and left upper chest wall , ) Neurologic: PERRL, EOMI, accommodation nl, no face palsy, no dysarthria Psychiatric: A+Ox3, euthymic affect Results & Data Results & Data ([facility]) Vital Signs (Past 12 Hours) Vital Signs Temp Pulse Resp BP Pulse Ox 02/21/21 15:56 36.7 C 79 18 139/83 97 02/21/21 08:33 37.0 C 79 16 124/80 96
[2021-02-21] MEDS: AMITRIPTYLINE HCL 25 MG TAB PO SCH (21:25)
[2021-02-22] MEDS: CYCLOBENZAPRINE HCL 5 MG TAB PO PRN ×2 (00:22→22:13)
[2021-02-22] MEDS: FLUTICASONE/VILANTEROL 200/25MCG 14 PUFFS/INHALER INH SCH (09:33)
[2021-02-22] MEDS: ASCORBIC ACID 500 MG TAB PO SCH (09:34)
[2021-02-22] MEDS: valACYclovir HCL 500 MG TABLET PO SCH ×3 (09:34→21:46)
[2021-02-22] MEDS: SERTRALINE HCL 50 MG TABLET PO SCH (09:34)
[2021-02-22] MEDS: VITAMIN B COMPLEX TAB PO SCH (09:34)
[2021-02-22] MEDS: methIMAzole 5 MG TABLET PO SCH (09:34)
[2021-02-22] MEDS: METOPROLOL TARTRATE 25 MG TAB PO SCH ×2 (09:34→21:46)
[2021-02-22] MEDS: LIDOCAINE 5% 1 PATCH TD SCH (09:36)
[2021-02-22] MEDS: GLUCOSAMINE SULFATE 500 MG CAP PO SCH (09:36)
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
--- NOTE | 2021-02-22 17:47 | Hospitalist Progress Note ---
Date of Service February 22, 2021 Assessment & Plan (1) Suicidal ideation: per Dr. Morgan notes: Patient admitted with suicidal ideation, with definitive plan ( wanted to overdose with sleep meds in hospital parking lot ) Appreciate input from psychiatry, on one-to-one suicidal watch. Patient will need admission to inpatient psych unit, referral made to the [facility]( psych unit ) /awaiting bed availability Shingles presented painful shingles rash 10 days ago s/p 7 days Valtrex completed no blisters noted, area is dry pain improving will discuss with Infection control committee, then recommend to d/c isolation tomorrow HYPERTHYROIDISM : per Dr. Morgan notes: New diagnosis, TSH level undetectable, with elevated T4 level presented with labile mood , ( lots of crying spell at home ) , diarrhea, lack of energy, lack of sleep -hx of depression /worsening of symptoms possible due to underlying Hyperthyroidism Started on methimazole 5 mg daily Thyroid ultrasound shows no significant nodule, Need outpatient thyroid uptake study Thyroid antibody test ordered Will need repeat TSH level check in 4 to 6 weeks to adjust antithyroid meds Will need endocrine follow-up as an outpatient Patient primary care physician Dr. Stern updated Fibromyalgia: Chronic issue, continue home meds/muscle relaxants Diarrhea: resolved Possible secondary to hyperthyroidism stool C. difficile negative Treatment of hyperactive thyroid as outlined above As needed Imodium ordered Disposition: Medically stable Patient will be discharged to inpatient psych unit when bed available .plan Admission and Anticipated Discharge Date Admission Date: February 15, 2021 Subjective ff up for suicidal ideation, herpes zoster, etc seen with IONA Griggs throughout whole encounter seen resting in chair, not in distress states she feels down today because of not being to move forward with inpatient Psych treatment due to isolation precautions states pain over the HZ lesions is improving she has not noticed any new rash/lesions denies headache, dizziness, chest pain, palpitations, dizziness no diarrhea no other symptoms Review of Systems Review of Systems: All systems reviewed & are unremarkable except as noted in Subjective Physical Exam Physical Exam: General- oriented x 3, not in distress, speaks in sentences with no effort or accessory muscle use Eyes- anicteric Neck- no JVD Lungs- clear breath sounds bilaterally, no rales/wheezes Heart- normal rate, regular rhythm; no murmurs Abdomen- normal bowel sounds, nondistended, soft, nontender Extremities- no pretibial edema, no calf tenderness Neuro- alert, oriented x 3; no gross focal neurologic deficits Skin- warm & dry healing HZ lesions with mild erythema- no warmth/tenderness, no blisters noted, no weeping noted Results & Data Results & Data ([facility]) Vital Signs (Past 12 Hours) Vital Signs Temp Pulse Resp BP Pulse Ox 02/22/21 16:00 36.7 C 84 18 134/84 97 02/22/21 06:59 36.5 C 75 18 123/83 95 all noted and reviewed including below
[2021-02-22] MEDS: AMITRIPTYLINE HCL 25 MG TAB PO SCH (21:46)
[2021-02-23] MEDS: FLUTICASONE/VILANTEROL 200/25MCG 14 PUFFS/INHALER INH SCH (09:03)
[2021-02-23] MEDS: GLUCOSAMINE SULFATE 500 MG CAP PO SCH (09:04)
[2021-02-23] MEDS: ASCORBIC ACID 500 MG TAB PO SCH (09:04)
[2021-02-23] MEDS: methIMAzole 5 MG TABLET PO SCH (09:04)
[2021-02-23] MEDS: METOPROLOL TARTRATE 25 MG TAB PO SCH ×2 (09:04→21:33)
[2021-02-23] MEDS: SERTRALINE HCL 50 MG TABLET PO SCH (09:04)
[2021-02-23] MEDS: VITAMIN B COMPLEX TAB PO SCH (09:04)
[2021-02-23] MEDS: LIDOCAINE 5% 1 PATCH TD SCH (09:51)
--- NOTE | 2021-02-23 13:33 | Hospitalist Progress Note ---
Date of Service February 23, 2021 Assessment & Plan (1) Disseminated herpes zoster: >4 dermatomes involved, finished 7 day course of Valtrex. Remaining erythematous lesions are closed or crusted over. Some muscle soreness associated with rash; difficult to tell if this is PHN. Offered trial of low dose gabapentin if she stays overnight while awaiting an inpatient psych bed. Lidocaine patch for help wtih comfort. Discussed findings with infection control and isolation precautions discontinued. (2) Suicidal ideation: Patient admitted with suicidal ideation, with definitive plan ( wanted to overdose with sleep meds in hospital parking lot ). Cont 1:1 suicide watch while awaiting inpatient transfer. (3) Hyperthyroidism: New diagnosis, TSH level undetectable, with elevated T4 level presented with labile mood , ( lots of crying spell at home ) , diarrhea, lack of energy, lack of sleep -hx of depression /worsening of symptoms possible due to underlying Hyperthyroidism Also had reported losing 15 lbs without trying over 3 weeks. Started on methimazole 5 mg daily Thyroid ultrasound shows no significant nodule, Need outpatient thyroid uptake study Thyroid antibody test ordered Will need repeat TSH level check in 4 to 6 weeks to adjust antithyroid meds Will need endocrine follow-up as an outpatient Patient primary care physician Dr. Stern (4) Diarrhea: Possibly 2/2 hyperthyroidism but has resolved. (5) Fibromyalgia: Chronic issue, continue home meds/muscle relaxants (6) DVT prophylaxis: Lovenox Full Code Dispo-[facility] psych unit when bed available. [facility] Admission and Anticipated Discharge Date Admission Date: February 15, 2021 Subjective 55 yo F presented with worsening depression and concern for SI, also with recent episode of herpes zoster. Mentating clearly tolerating PO feels better since admission some pain in her rash area described as a soreness in the unerlying muscle also reports some issues with muscle spasms in her back related to fibromyalgia- states lidocaine patches were helping. Review of Systems Review of Systems: All systems reviewed & are unremarkable except as noted in Subjective Physical Exam Physical Exam: CONSTITUTIONAL: WNWD, vitals as above, generally well- appearing EYES: normal conjunctivae, no scleral icterus ENT: external ear and nose normal, oropharynx clear, MMM RESPIRATORY: clear to auscultation bilaterally, no crackles, rales or wheezes, normal respiratory effort CARDIOVASCULAR: regular rate and rhythm, S1 and 2 heard without murmurs, gallops or rubs, no JVD, no peripheral edema CHEST: +erythematous raised rash on anterior lower neck extending onto midsternal region, extending onto left shoulder and wrapping around onto posterior neck up into her lower posterior hairline. No open or weeping lesions are present. Some are crusted over. No vesicles present. GASTROINTESTINAL: soft, nontender, nondistended, no guarding. MUSCULOSKELETAL: strength 5/5 throughout, head is normocephalic and atraumatic SKIN: warm and dry, rash as above. NEUROLOGIC: No facial palsy, no dysarthria. CN 2-12 grossly intact, no sensory deficit, normal cognition, normal speech, no tremor PSYCHIATRIC: alert cooperative and oriented to person, place and time. Results & Data Results & Data ([facility]) Vital Signs (Past 12 Hours) Vital Signs Temp Pulse Resp BP Pulse Ox 02/23/21 08:58 36.5 C 88 16 123/72 95 Medications Administered Current Inpatient Medications Acetaminophen (Acetaminophen 325 Mg Tab) 650 mg PO Q4H PRN PRN Reason: Pain or Fever Stop: 03/18/21 02:28 Last Admin: 02/19/21 04:01 Dose: 650 mg Documented by: Albuterol (Albuterol 0.083% Nebu Soln 3 Ml Vial) 2.5 mg INH Q4 PRN PRN Reason: Wheezing Stop: 03/18/21 02:28 Albuterol (Albuterol Hfa 8 Gm Inhaler) 2 puffs INH Q4 PRN PRN Reason: Shortness Of Breath Stop: 03/18/21 02:28 Amitriptyline HCl (Amitriptyline Hcl 25 Mg Tab) 25 mg PO [facility] Stop: 03/18/21 20:59 Last Admin: 02/22/21 21:46 Dose: 25 mg Documented by: Ascorbic Acid (Ascorbic Acid 500 Mg Tab) [facility] Stop: 03/18/21 08:59 Last Admin: 02/23/21 09:04 Dose: 750 mg Documented by: Cetirizine HCl (Cetirizine Hcl 10 Mg Tablet) 10 mg PO DAILY PRN PRN Reason: Allergic Reaction Stop: 03/18/21 02:28 Last Admin: 02/22/21 06:40 Dose: 10 mg Documented by: Cyclobenzaprine HCl (Cyclobenzaprine Hcl 5 Mg Tab) 5 mg PO BID PRN PRN Reason: Muscle Spasticity Stop: 03/18/21 02:28 Last Admin: 02/22/21 22:13 Dose: 5 mg Documented by: Ergocalciferol (Ergocalciferol 50,000 Units 1250 Mcg Cap) 50,000 units PO Pete@0900 [facility] Stop: 03/21/21 08:59 Last Admin: 02/19/21 08:00 Dose: 50,000 units Documented by: Fluticasone Propionate (Fluticasone Propionate Na Spr 16 Gm Btl) 2 sprays NA DAILY PRN PRN Reason: Nasal Congestion Stop: 03/18/21 02:28 Fluticasone/Vilanterol (Fluticasone/Vilanterol 200/25mcg 14 Puffs/Inhaler) 1 [facility]H [facility] Stop: 03/18/21 08:59 Last Admin: 02/23/21 09:03 Dose: 1 puffs Documented by: Glucosamine Sulfate (Glucosamine Sulfate 500 Mg Cap) 500 mg PO QAM [facility] Stop: 03/18/21 08:59 Last Admin: 02/23/21 09:04 Dose: 500 mg Documented by: Hydroxyzine HCl (Hydroxyzine Hcl 25 Mg Tab) 25 mg PO HS PRN PRN Reason: Sleep Stop: 03/22/21 14:16 Lorazepam (Ativan) 1 mg in 2 mls @ 0.5 mls/min IV Q12 PRN PRN Reason: severe anxiety Stop: 03/22/21 14:16 Lidocaine (Lidocaine 5% 1 Patch) [facility] Stop: 03/19/21 10:59 Last Admin: 02/23/21 09:51 Dose: Not Given Documented by: Loperamide HCl (Loperamide Hcl 2 Mg Cap) 2 mg PO Q8 PRN PRN Reason: Diarrhea Stop: 03/19/21 18:27 Loratadine (Loratadine 10 Mg Tab) 10 mg PO HS PRN PRN Reason: Allergy Symptoms Stop: 03/18/21 02:28 Last Admin: 02/19/21 00:08 Dose: 10 mg Documented by: Lorazepam (Lorazepam 0.5 Mg Tab) 0.5 mg PO Q8 PRN PRN Reason: Anxiety Stop: 03/18/21 03:20 Last Admin: 02/22/21 17:39 Dose: 0.5 mg Documented by: Methimazole (Methimazole 5 Mg Tablet) 5 mg PO DAILY [facility] Stop: 03/18/21 08:59 Last Admin: 02/23/21 09:04 Dose: 5 mg Documented by: Metoprolol Tartrate (Metoprolol Tartrate 25 Mg Tab) 12.5 mg PO BID [facility] Stop: 03/18/21 02:28 Last Admin: 02/23/21 09:04 Dose: 12.5 mg Documented by: Miscellaneous (Remove Lidoderm Patch) 1 ea N/A DAILY@2100 [facility] Stop: 03/19/21 20:59 Last Admin: 02/22/21 17:23 Dose: 1 ea Documented by: Nitroglycerin (Nitroglycerin Sl 0.4 Mg/Tab Tab) 0.4 mg SL UD PRN PRN Reason: Chest Pain Stop: 03/18/21 02:28 Ondansetron HCl (Ondansetron Inj 2 Mg/Ml 2 Ml Vial) 4 mg IV Q6H PRN PRN Reason: Nausea Stop: 03/18/21 02:28 Sertraline HCl (Sertraline Hcl 50 Mg Tablet) 50 mg PO QAM [facility] Stop: 03/18/21 08:59 Last Admin: 02/23/21 09:04 Dose: 50 mg Documented by: Vitamin B Complex (Vitamin B Complex Tab) [facility] Stop: 03/18/21 08:59 Last Admin: 02/23/21 09:04 Dose: 1 tab Documented by: (1) Diarrhea Diarrhea type: unspecified type Qualified Code(s): R19.7 - Diarrhea, unspecified
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
[2021-02-23] MEDS ORDERED: LIDOCAINE 5% 1 PATCH TD SCH (17:00)
[2021-02-23] MEDS: CYCLOBENZAPRINE HCL 5 MG TAB PO PRN (21:34)
[2021-02-23] MEDS: AMITRIPTYLINE HCL 25 MG TAB PO SCH (21:38)
[2021-02-23] MEDS: GABAPENTIN 100 MG CAP PO SCH (21:38)
[2021-02-24] MEDS: FLUTICASONE/VILANTEROL 200/25MCG 14 PUFFS/INHALER INH SCH (08:45)
[2021-02-24] MEDS ORDERED: ENOXAPARIN INJ 40 MG/0.4 ML SYR SQ SCH (09:00)
[2021-02-24] MEDS: VITAMIN B COMPLEX TAB PO SCH (09:18)
[2021-02-24] MEDS: ASCORBIC ACID 500 MG TAB PO SCH (09:18)
[2021-02-24] MEDS: GLUCOSAMINE SULFATE 500 MG CAP PO SCH (09:18)
[2021-02-24] MEDS: methIMAzole 5 MG TABLET PO SCH (09:19)
[2021-02-24] MEDS: METOPROLOL TARTRATE 25 MG TAB PO SCH (09:19)
[2021-02-24] MEDS: SERTRALINE HCL 50 MG TABLET PO SCH (09:20)
[2021-02-24] MEDS: GABAPENTIN 100 MG CAP PO SCH (09:21)
--- NOTE | 2021-02-24 13:46 | Discharge Summary ---
Date of Service February 24, 2021 Admission HPI Per Admitting Provider HISTORY OF PRESENT ILLNESS: A 55-year-old female with past medical history significant for asthma, seasonal allergic rhinitis, GERD, stage III chronic kidney disease, allergic conjunctivitis, who went to PCP office today because of rash developing on her left shoulder region. The rash started about 2-3 days ago, it was painful and when she was told she had shingles, she was worried about how she got it and when family doctor asked whether she has any anxiety and stress at home, then she started crying and she could not stop crying. She also disclosed plans of taking her life at PCP office and she was brought into the hospital. Currently, resting comfortably. Case management from [employer] in the room and patient says she is feeling better now after talking to case management. Denies any headache, no blurred visions, no sore throat. She has chronic cough, chronic shortness of breath on exertion. Once in a while she gets chest pain, attributes it to her GERD. Currently, no chest pain. Has nausea, no vomiting. Appetite is down. She says she thinks she lost about 15 pounds in the last 1 month, she is having diarrhea for last 1 month about three times a day, mostly watery. Today was the first time she got some formed stool. She denies any blood in the stools or black stools. Has normal bladder movements. Once in a while she feels palpitations. Admission Exam Per Admitting Provider PHYSICAL EXAMINATION: GENERAL: The patient is obese, not in acute distress. VITAL SIGNS: Temperature 35.9, pulse 95, respiratory rate 18, blood pressure 143/73, oxygen 95% on room air. HEENT: Head atraumatic. Oral mucosa moist. NECK: No JVD, no neck masses seen. CARDIOVASCULAR: S1, S2 heard. Mild tachycardia. No murmur, no gallop. RESPIRATORY SYSTEM: Normal AP diameter. No accessory muscle use. No wheezing, no crackles. ABDOMEN: Soft, bowel sounds present, nontender. No distention. CENTRAL NERVOUS SYSTEM: Cranial nerves II-XII grossly intact, nonfocal. EXTREMITIES: No edema, no erythema. SKIN: Erythematous papular rash seen in a dermatomal fashion on the left breast region up to the left shoulder. Principal Diagnosis Disseminated Herpes Zoster Suicidal Ideations Depression New onset Hyperthyroidism Discharge Exam CONSTITUTIONAL: WNWD, vitals as above, generally well-appearing EYES: normal conjunctivae, no scleral icterus ENT: external ear and nose normal, oropharynx clear, MMM RESPIRATORY: clear to auscultation bilaterally, no crackles, rales or wheezes, normal respiratory effort CARDIOVASCULAR: regular rate and rhythm, S1 and 2 heard without murmurs, gallops or rubs, no JVD, no peripheral edema CHEST: +erythematous raised rash on anterior lower neck extending onto midsternal region, extending onto left shoulder and wrapping around onto posterior neck up into her lower posterior hairline. No open or weeping lesions are present. Some are crusted over. No vesicles present. GASTROINTESTINAL: soft, nontender, nondistended, no guarding. MUSCULOSKELETAL: strength 5/5 throughout, head is normocephalic and atraumatic SKIN: warm and dry, rash as above. NEUROLOGIC: No facial palsy, no dysarthria. CN 2-12 grossly intact, no sensory deficit, normal cognition, normal speech, no tremor PSYCHIATRIC: alert cooperative and oriented to person, place and time. Discharge Data Allergies Allergy/AdvReac Type Severity Reaction Status Date / Time fentanyl Allergy Severe anaphylaxis, Verified 10/20/20 05:57 diffuse swelling and dyspnea morphine Allergy Severe tongue Verified 10/20/20 05:57 swelling, hives NSAIDS (Non-Steroidal Allergy Intermediate Hives Verified 10/20/20 05:57 Anti-Inflamma latex Allergy Mild Rash Verified 10/20/20 05:57 vancomycin Allergy Mild Rash Verified 10/20/20 05:57 Penicillins AdvReac Intermediate GI upset Verified 10/20/20 05:57 amoxicillin AdvReac Mild GI upset, Verified 10/20/20 05:57 urinary incontinence adhesive AdvReac Redness of Verified 02/20/21 04:53 Skin Consultations 02/15/21 21:20 ED Decision to Admit Stat 02/16/21 02:29 Consult Case Management - Discharge Planning Routine 02/16/21 03:00 Consult Behavioral Health Liaison Routine 02/16/21 08:00 Consult Psychiatry Routine Ordered Studies [facility], [phone] Ultrasound Report Patient: ANDREEA HURD EAdmit Date: 02/15/21MR#: [id number]: [address]Acct ID:[id number]: Date: 1965City Zip: [place] [id number]: 55Location: 2WSex: FRoom/Bed: [id number] Phy: Svetlana Morgan, MDDiagnosis: SIPri Phy: Sandraelsa Nena Barb, DOService Date: 02/17/21Fam Phy:Interpreting Phy: Scot Andrews MDAdmit Phy: Zechariah Ruffin MD Ordering Phy: Svetlana Morgan MD cc: ~ US thyroid CLINICAL HISTORY: hyperthyroidism COMPARISON STUDY: No previous studies for comparison. FINDINGS: The right lobe the thyroid measures 56 x 20 x 16 mm. The left lobe measured 52 x 17 x 16 mm. Both lobes were heterogeneous in echotexture. There is an ill-defined heterogeneous focus within the lower pole of the right lobe. This is isoechoic to thyroid gland contains solid and cystic spaces as well as microcalcifications. It is unclear whether this represents a discrete nodule or simply a heterogeneous portion of the gland. This measures approximately 2 cm. Given the focal nature of this finding and the presence of calcifications, fine-needle aspiration sampling is recommended in follow-up. IMPRESSION: 1. Ill-defined heterogeneous focus within the lower pole the right lobe of the thyroid containing microcalcifications. Fine-needle aspiration sampling is recommended in follow-up ACT 112: Positive. There are findings on this exam that require communication between the performing entity and the patient following Patient Test Result Information Act ([place] Act 112) guidelines. Electronically signed by: Scot Andrews M.D. 02/17/2021 2:03 PM Dictated: 02/17/21 1358Transcribed: 02/17/21 1358 Hospital Course (1) Disseminated herpes zoster: >4 dermatomes involved, finished 7 day course of Valtrex. Remaining erythematous lesions are closed or crusted over. Some muscle soreness associated with rash; difficult to tell if this is PHN. Offered trial of low dose gabapentin if she stays overnight while awaiting an inpatient psych bed. Lidocaine patch for help wtih comfort. Discussed findings with infection control and isolation precautions discontinued. (2) Suicidal ideation: Patient admitted with suicidal ideation, with definitive plan ( wanted to overdose with sleep meds in hospital parking lot ). Cont 1:1 suicide watch while awaiting inpatient transfer. (3) Hyperthyroidism: New diagnosis, TSH level undetectable, with elevated T4 level presented with labile mood , ( lots of crying spell at home ) , diarrhea, lack of energy, lack of sleep -hx of depression /worsening of symptoms possible due to underlying Hyperthyroidism Also had reported losing 15 lbs without trying over 3 weeks. Started on methimazole 5 mg daily Thyroid ultrasound shows no significant nodule, Need outpatient thyroid uptake study Thyroid antibody test ordered Will need repeat TSH level check in 4 to 6 weeks to adjust antithyroid meds Will need endocrine follow-up as an outpatient Patient primary care physician Dr. Stern (4) Diarrhea: Possibly 2/2 hyperthyroidism but has resolved. (5) Fibromyalgia: Chronic issue, continue home meds/muscle relaxants (6) DVT prophylaxis: Lovenox Full Code Dispo-to inpatient psych unit when bed available. Anu Hopkins DO [facility] Hospitalist Total Time Total Time Spent Total Time Spent (In Minutes): 60 Total Time Includes: Examination of the Patient, Discharge Planning, Medication Reconciliation and Communication With Other Providers Discharge Plan Discharge Items Patient Disposition: Transfer Behavioral Health Fac Reason For Visit: SI Discharge Diagnosis: Shingles Suicidal Ideation Hyperthyroidism Condition on Discharge: Good Activity: Resume your previous activity Non-emergency contact: Primary Care Provider Call non-emergency contact if: you have any medication questions Follow-up/Referrals: Nena Parks DO [Primary Care Provider] - Diet: Regular Addtl Attending Provider Instructions: Please take all medications as instructed on discharge list below. It is recommended that you follow-up with your primary care physician within 1-2 weeks of hospital discharge to ensure you are still doing well. You were diagnosed with high active thyroid gland/hyperthyroidism, which can contribute to feeling anxious lack of sleep. You were started on 2 new medications: * Methimazole 5 mg take 1 tablet daily * NOTE: Metoprolol was given during your admission, to reduce your heart rate which was initially elevated. This was stopped at discharge, but may need to be added back again if tachycardia symptoms again develop. * Need to have a repeat thyroid function test in 4-6 weeks * Will need follow-up with Endocrinology in outpatient clinic It was a pleasure taking care of you! Please call if you have any questions or problems. You can reach a [facility] hospitalist on duty at [facility] 24 hours a day by calling [phone]. Take care of yourself. Anu Hopkins DO [facility] Hospitalist Addtl Third Hand Provider Instructions: For Shingles Rash . until the rash has crusted( usually takes 7-10 days ) , You should Keep the rash covered, wash hands with soap and water or alcohol fishing tool technician oil well as often possible ( specially after touching the rash ) to prevent the spread of virus to others. Avoid contact with women who have never had chickenpox or the varicella vaccine, premature or low weight infants, and immunocompromised individuals ( pt with cancer , receiving Chemo or radiation treatment , HIV etc ) Pending Studies at Discharge: No Stand-Alone Forms: My [facility] Medications and DC Order Prescriptions: New methimazole 5 mg Tablet 5 mg PO DAILY Qty: 30 RF: 0 lidocaine 5 % Adhesive Patch,Medicated 1 patch transdermal HS Qty: 30 RF: 0 gabapentin 100 mg Capsule 100 mg PO BID Qty: 60 RF: 0 Continued turmeric 400 mg Capsule 400 mg PO QAM RF: 0 albuterol sulfate 2.5 mg /3 mL (0.083 %) Solution For Nebulization 2.5 mg INHALATION Q4 PRN (Reason: Wheezing) RF: 0 lorazepam 1 mg Tablet 0.5 - 1 mg PO DAILY PRN (Reason: Anxiety) RF: 0 albuterol sulfate 90 mcg/actuation Hfa Aerosol Inhaler 2 puff INHALATION Q4 PRN (Reason: Shortness Of Breath) RF: 0 fluticasone propionate [Flonase Allergy Relief] 50 mcg/actuation [place],Suspension 2 spray INTRANASAL DAILY PRN (Reason: Nasal Congestion) RF: 0 loratadine 10 mg Tablet 10 mg PO HS PRN (Reason: Allergy Symptoms) RF: 0 Breo Ellipta 200-25 mcg/dose Blister With Device 1 inh INHALATION QAM RF: 0 ascorbic acid (vitamin C) [Vitamin C] 500 mg Tablet 750 mg PO QAM RF: 0 ergocalciferol (vitamin D2) [Vitamin D2] 1,250 mcg (50,000 unit) Capsule 1,250 mcg PO WK RF: 0 lysine 500 mg Tablet 500 mg PO QAM PRN (Reason: Allergic Reaction) RF: 0 vitamin B complex Capsule 1 cap PO QAM RF: 0 omega-3 fatty acids-vitamin E 1,000 mg Capsule 1 cap PO QAM RF: 0 Glucosamine Chondroitin 550-30-1 mg Capsule 1 cap PO QAM RF: 0 cetirizine 10 mg tablet 10 mg PO DAILY PRN (Reason: Allergic Reaction) RF: 0 azelastine 137 mcg (0.1 %) aerosol,spray 2 spray INTRANASAL DAILY PRN (Reason: Allergic Symptoms) RF: 0 cyclobenzaprine 5 mg tablet 5 mg PO BID PRN (Reason: Muscle Spasticity) RF: 0 Discontinued valacyclovir [Valtrex] 1 gram tablet 1,000 mg PO TID RF: 0 No Action duloxetine 40 mg capsule,delayed release(DR/EC) 40 mg PO QAM Qty: 30 RF: 0 Discharge Orders: Discharge Order (Routine); Ordered 02/24/21 Ordered By: Anu Hopkins Admission Data Admit Date/Time: 02/15/21 22:48 Attending Provider: Anu Hopkins Admit Provider: Zechariah Ruffin Primary Care Provider: Nena Parks Other Providers: Zechariah Ruffin ; Jeanie Santana ; Svetlana Morgan Other Interventions: Discharge Summary Assessment (RN) Last Done: 02/24/21 13:58 PSY Interdisciplinary Discharge Planning Last Done: 02/16/21 12:00
== END 2021-02-24 14:00 | DRG 866 ==
LOC: ED 18:59 → SUATTDRO 22:48 → 2W 22:48 → 3E 02-19 13:30

== ENCOUNTER 2021-02-24 12:41 | Inpatient (IN) ==
[2021-02-24] MEDS ORDERED: ALUMINUM/MAGNESIUM SUSP 30 ML UDC PO PRN (14:01)
[2021-02-24] MEDS ORDERED: SODIUM CHLORIDE 0.65% NA SOLN 45 ML (OCEAN) PRN (14:01)
[2021-02-24] MEDS ORDERED: MAGNESIUM HYDROXIDE SUSP 30 ML UDC PO PRN (14:01)
[2021-02-24] MEDS ORDERED: hydrOXYzine HCl 25 MG TAB PO PRN ×2 (14:01)
[2021-02-24] MEDS ORDERED: FLUTICASONE PROPIONATE NA SPR 16 GM BTL PRN (15:41)
[2021-02-24] MEDS ORDERED: ALBUTEROL HFA 8 GM INHALER INH PRN (15:41)
[2021-02-24] MEDS ORDERED: CETIRIZINE HCL 10 MG TABLET PO PRN (15:41)
[2021-02-24] MEDS ORDERED: LORATADINE 10 MG TAB PO PRN (15:41)
[2021-02-24] MEDS ORDERED: ALBUTEROL 0.083% NEBU SOLN 3 ML VIAL INH PRN (15:41)
[2021-02-24] MEDS ORDERED: LORazepam 0.5 MG TAB PO PRN (16:16)
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
[2021-02-24] MEDS: LIDOCAINE 5% 1 PATCH TD SCH (20:36)
[2021-02-24] MEDS: GABAPENTIN 100 MG CAP PO SCH (20:36)
[2021-02-25] MEDS: CYCLOBENZAPRINE HCL 5 MG TAB PO PRN (06:52)
[2021-02-25] MEDS: FLUTICASONE/VILANTEROL 200/25MCG 14 PUFFS/INHALER INH SCH (10:13)
[2021-02-25] MEDS: GABAPENTIN 100 MG CAP PO SCH ×2 (10:13→21:00)
[2021-02-25] MEDS: methIMAzole 5 MG TABLET PO SCH (10:13)
[2021-02-25] MEDS: DULoxetine HCL 20 MG CAP PO SCH (10:13)
[2021-02-25] MEDS: VITAMIN B COMPLEX TAB PO SCH (10:14)
[2021-02-25] MEDS: ASCORBIC ACID 500 MG TAB PO SCH (10:14)
--- NOTE | 2021-02-25 13:41 | Psychiatric Progress Note ---
Date of Service February 25, 2021 Impression / Recommendations Impression Per admitting provider: This 55-year-old woman presents with a long psychiatric history that has included episodes of major depression, at least 3 suicide attempts, chronic suicidal ideation, and a past diagnosis of borderline personality disorder. She is convinced that she has the ability to communicate with people, through oral and auditory means. In other words, she believes that she hears the voices of persons who have , and that she believes that they can hear her when she talks to them. Although she reports that she is chronically depressed with symptoms that wax and wane, she believes that her current episode of depression and emotional distress is related to several factors, including the fact that she had expected to complete her role as mother of 5 children this year with her daughters plan to move to [place] and go to college. 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 She is eager to leave [place] and move closer to her family of origin in [place], [place]. Also, within the context of her belief that she can communicate with the spiritual world, she is distressed because she believes that her late son, Austen, has decided to be reincarnated as a baby that is, in fact, her nephew (the son of the patient's sister, a woman who is 25 years younger than the patient). This, she says she has been told, will and Austen's relationship with the patient from beyond the grave, and the patient says that Austen has always been her "rock" and a primary source of support. 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 Further, the patient's family of origin and her other children do not believe that she is able to communicate with her late relatives, and she says that she feels isolated and alone because no one believes her. 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 Accordingly, she says that at 55 she is faced with the task of finding a new field of endeavor and support. (1) Anxiety and depression: 02/24/2021 -The patient has been admitted to the [facility] inpatient psychiatric unit at [facility] ([address] [place] [address]) where she has been placed on suicide precautions and will be closely observed. -The patient has been referred to and is encouraged to actively participate and individual, group, and recreational therapies. In addition, we will plan a family intervention. The patient says that she is interested in having several of her siblings who are at least temporarily in the area participate with her in a family meeting. -The patient's outpatient antidepressant medication has been sertraline for quite some time. Her dose of sertraline at the time of admission was not 100 mg a day.. However, she notes that her outpatient psychiatrist has recently advised her that an option would be to discontinue sertraline in favor of duloxetine, given the patient's diagnosis of fibromyalgia and persistent herpes zoster pain. We will begin duloxetine 20 mg daily and titrate as tolerated and indicated towards at least 60 mg a day. -The patient understands that this is likely to be a short hospital stay and that titration of her psychiatric medications may need to occur on an outpatient basis. -Individual, group and recreational therapy will focus on helping the patient develop improved individual coping strategies. -I am encouraging the patient to focus on her expressed need to have other people tell her who she is as a person, and her tendency to allow her sense of herself to be very heavily influenced both the positive and negative comments that are made to her by other people, such as her daughter or the members of her family of origin. The patient make statements such as, "I have always let men pick me. I never picked them. I am [susceptible to] feeling like I have to be whoever they want me to be." 02/25 -Received first dose of Cymbalta this morning. As she is experiencing nausea this morning (preceded Cymbalta dose) will defer consideration for further titration till tomorrow -Regarding nausea, vitals unremarkable and she reports she has been having nausea intermittently for some time as well as recent diarrhea possibly associated with hyperthyroidism also reports history of IBS. Has as needed Maalox. -Reviewed no Ativan received on unit. We will need to clarify how she was using this at home. (2) Suicidal ideation: 02/24/2021 -At admission, the patient reports persistent suicidal ideation. She does note that during her stay on the medical floor the intensity of the suicidal thoughts have diminished and she has reading a number of papers that have been provided to her during her stay on the medical floor to help her develop improved coping strategies. She notes that she feels able to reliably contract for safety on the unit and assures us that she will let us know if she has thoughts of acting on her suicidality while staying here. -The patient says that because she feels so overwhelmed by the stressors that she is facing in the community she says that she is not yet quite sure if she will be able to tolerate the stress of returning to the community, and she wants to work further on developing her coping strategies and, also, and making certain plans for the future and matters that she feels are "up in the air. 02/25 -Reporting increased intensity of suicidal ideation overnight with increased physical distress secondary to nausea however able to convincingly contract for safety here in the hospital (3) Disseminated herpes zoster: 02/24/2021 -The patient's herpes zoster eruption and blisters have all now scabbed over and are healing. She has been cleared medically for the psychiatric unit and for interactions with other people without precautions. However, she continues to experience a number of pain symptoms, and the eruptions are unsightly and are expected to cause distress among her peers. For that reason, we are starting her out in a medically necessary private room for her own dignity and the comfort of other patients. -Because of her herpes and because of her fibromyalgia we are going to start duloxetine 20 mg a day and titrate to or above 60 mg a day as tolerated. Sertraline, her outpatient medication as well as the medication she has been taking for depression on the medical floor has been discontinued in favor of duloxetine. Inventory Assets Strengths: Intelligent. Educated. Supportive family. Motivated to treatment. Needs: Mood stabilization. Resolution of suicidality. Risk Factors Assessment Male: No : Yes Do You Have Access To A Gun?: No Health Problems: Yes Mental Health Diagnoses: Yes Substance Use Disorders: No Previous Attempt: Yes Previous Attempt; Highly Lethal: No Previous Attempt; Planned: Yes Previous Attempt; Didn't Tell Anyone: Yes (But the patient, herself, interrupted the suicide attempt by overdose and i) Family History of Suicide: No Previous Psychiatric Hospitalization: Yes Hopelessness: No Smoker: No Protective Factors Assessment Rastafari Beliefs: Yes ("Spiritual.") : No Responsible for Young Children: No Employed: Yes Stable Relationships: Yes Supportive Family: Yes Good Rapport with Provider: Yes Absence of Any Risk Factors Above: No Interval History Chief Complaint "I do not feel as good this morning". Review of Systems Notes Nausea without vomiting or abdominal pain. denies fever, chills. Sleep Information Total Hours of Sleep: 7.25 Meal Information Percent Meal Consumed - Breakfast: 0 Percent Meal Consumed - Dinner: 100 Subjective Subjective Patient was seen & assessed and interval progress reviewed with treatment team. patient was admitted from medical floor yesterday with admission for suicidal ideation and disseminated herpes zoster. Also with recent diagnosis of hyperthyroidism and started on methimazole. Patient was experiencing nausea on the medical floor and reports again more nauseous this morning. Denies emesis. Reports no bowel movement yesterday. No loose stool today. No abdominal pain or fever. Reports mood not quite as good as yesterday due to physical discomfort and reports associated increased suicidal ideation overnight. Denies imminent intent but states rather "I just do not want to be here anymore." States she had been on the Zoloft "for a while" converted to Cymbalta receiving her first dose this morning. Amitriptyline was also stopped during medical hospitalization. Physical Exam Psychiatric Orientation: alert and cooperative Apperance: + disheveled Eye Contact: + fair eye contact Motor Behavior: + psychomotor retardation Speech: normal rate/rhythm/volume of speech Affect: + depressed affect Mood: + depressed mood Thought Process: goal directed thought process Thought Content: + preoccupation Suicidal Thoughts: denies suicidal plan and denies suicidal intent; + reports suicidal thoughts Homicidal Thoughts: denies homicidal thoughts Hallucinations: no auditory hallucinations and no visual hallucinations Cognition: language grossly intact Insight: + fair insight Judgement: + fair judgement Vital Signs (Past 24 Hours) Last Vital Signs Temp 36.5 C 02/25/21 06:38 Pulse 84 02/25/21 06:39 Resp 16 02/25/21 06:38 BP 120/71 02/25/21 06:39 Results & Data ([facility]) Current Inpatient Medications Current Inpatient Medications: Current Inpatient Medications Al Hydrox/Mg Hydrox/Simethicone (Aluminum/Magnesium Susp 30 Ml Udc) 30 ml PO Q4H PRN PRN Reason: GI Upset Stop: 03/26/21 14:00 Albuterol (Albuterol 0.083% Nebu Soln 3 Ml Vial) 2.5 mg INH Q4 PRN PRN Reason: Wheezing Stop: 03/26/21 15:40 Albuterol (Albuterol Hfa 8 Gm Inhaler) 2 puffs INH Q4 PRN PRN Reason: Shortness Of Breath Stop: 03/26/21 15:40 Ascorbic Acid (Ascorbic Acid 500 Mg Tab) 750 mg PO QAM [facility] Stop: 03/27/21 08:59 Last Admin: 02/25/21 10:14 Dose: 750 mg Documented by: Cetirizine HCl (Cetirizine Hcl 10 Mg Tablet) 10 mg PO DAILY PRN PRN Reason: Allergic Reaction Stop: 03/26/21 15:40 Cyclobenzaprine HCl (Cyclobenzaprine Hcl 5 Mg Tab) 5 mg PO BID PRN PRN Reason: Muscle Spasticity Stop: 03/26/21 15:40 Last Admin: 02/25/21 06:52 Dose: 5 mg Documented by: Duloxetine HCl (Duloxetine Hcl 20 Mg Cap) 20 mg PO QAM [facility] Stop: 03/27/21 08:59 Last Admin: 02/25/21 10:13 Dose: 20 mg Documented by: Ergocalciferol (Ergocalciferol 50,000 Units 1250 Mcg Cap) 50,000 units PO Pete@0900 [facility] Stop: 03/28/21 00:00 Fluticasone Propionate (Fluticasone Propionate Na Spr 16 Gm Btl) 2 sprays NA DAILY PRN PRN Reason: Nasal Congestion Stop: 03/26/21 15:40 Fluticasone/Vilanterol (Fluticasone/Vilanterol 200/25mcg 14 Puffs/Inhaler) 1 puffs INH QAM [facility] Stop: 03/27/21 08:59 Last Admin: 02/25/21 10:13 Dose: 1 puffs Documented by: Gabapentin (Gabapentin 100 Mg Cap) 100 mg PO BID [facility] Stop: 03/26/21 20:59 Last Admin: 02/25/21 10:13 Dose: 100 mg Documented by: Hydroxyzine HCl (Hydroxyzine Hcl 25 Mg Tab) 50 mg PO HSZ PRN PRN Reason: Insomnia Stop: 03/26/21 14:00 Hydroxyzine HCl (Hydroxyzine Hcl 25 Mg Tab) 25 mg PO Q4H PRN PRN Reason: Anxiety Stop: 03/26/21 14:00 Lidocaine (Lidocaine 5% 1 Patch) 1 patch TD HS [facility] Stop: 03/26/21 21:59 Last Admin: 02/24/21 20:36 Dose: 1 patch Documented by: Loratadine (Loratadine 10 Mg Tab) 10 mg PO HS PRN PRN Reason: Allergy Symptoms Stop: 03/26/21 15:40 Lorazepam (Lorazepam 0.5 Mg Tab) 0.5 - 1 mg PO DAILY PRN PRN Reason: Anxiety Stop: 03/26/21 16:15 Magnesium Hydroxide (Magnesium Hydroxide Susp 30 Ml Udc) 30 ml PO DAILY PRN PRN Reason: Constipation Stop: 03/26/21 14:00 Methimazole (Methimazole 5 Mg Tablet) 5 mg PO DAILY [facility] Stop: 03/27/21 08:59 Last Admin: 02/25/21 10:13 Dose: 5 mg Documented by: Miscellaneous (Remove Lidoderm Patch) 1 ea N/A DAILY@1000 [facility] Stop: 03/27/21 09:59 Miscellaneous (Order Awaiting Action([place]-3 Fatty Acids-Vitamin E 1,000 Mg Capsule)) 1 ea N/A QS [facility] Stop: 03/27/21 00:00 Last Admin: 02/25/21 09:45 Dose: Not Given Documented by: Sodium Chloride (Sodium Chloride 0.65% Na Soln 45 Ml ([place])) 1 - 2 sprays NA PRN PRN PRN Reason: Nasal Dryness/Congestion Stop: 03/26/21 14:00 Vitamin B Complex (Vitamin B Complex Tab) 1 tab PO QAM [facility] Stop: 03/27/21 08:59 Last Admin: 02/25/21 10:14 Dose: 1 tab Documented by: Mental Health & Subst Abuse Tx Therapist Name of Therapist: [facility] Date of Therapist Appointment: 03/02/21 [facility]Senior Research Associate Name of Pi/Senior Research Associate: Gi Ye Post Discharge Appointments Primary Care Physician Name Of Family Doctor: Dr. Thomas
[2021-02-25] MEDS: LIDOCAINE 5% 1 PATCH TD SCH (21:01)
[2021-02-25] MEDS: ERGOCALCIFEROL 50,000 UNITS 1250 MCG CAP PO SCH (23:35)
[2021-02-26] MEDS: ASCORBIC ACID 500 MG TAB PO SCH (09:55)
[2021-02-26] MEDS: FLUTICASONE/VILANTEROL 200/25MCG 14 PUFFS/INHALER INH SCH (09:55)
[2021-02-26] MEDS: GABAPENTIN 100 MG CAP PO SCH ×2 (09:56→21:30)
[2021-02-26] MEDS: ERGOCALCIFEROL 50,000 UNITS 1250 MCG CAP PO SCH (09:56)
[2021-02-26] MEDS: DULoxetine HCL 20 MG CAP PO SCH (09:57)
[2021-02-26] MEDS: methIMAzole 5 MG TABLET PO SCH (09:57)
[2021-02-26] MEDS: VITAMIN B COMPLEX TAB PO SCH (09:57)
--- NOTE | 2021-02-26 14:01 | Psychiatric Progress Note ---
Date of Service February 26, 2021 Impression / Recommendations Impression Per admitting provider: This 55-year-old woman presents with a long psychiatric history that has included episodes of major depression, at least 3 suicide attempts, chronic suicidal ideation, and a past diagnosis of borderline personality disorder. She is convinced that she has the ability to communicate with people, through oral and auditory means. In other words, she believes that she hears the voices of persons who have , and that she believes that they can hear her when she talks to them. Although she reports that she is chronically depressed with symptoms that wax and wane, she believes that her current episode of depression and emotional distress is related to several factors, including the fact that she had expected to complete her role as mother of 5 children this year with her daughters plan to move to [place] and go to college. 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 She is eager to leave [place] and move closer to her family of origin in [place], [place]. Also, within the context of her belief that she can communicate with the spiritual world, she is distressed because she believes that her late son, Austen, has decided to be reincarnated as a baby that is, in fact, her nephew (the son of the patient's sister, a woman who is 25 years younger than the patient). This, she says she has been told, will and Austen's relationship with the patient from beyond the grave, and the patient says that Autsen has always been her "rock" and a primary source of support. 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 Further, the patient's family of origin and her other children do not believe that she is able to communicate with her late relatives, and she says that she feels isolated and alone because no one believes her. 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 Accordingly, she says that at 55 she is faced with the task of finding a new field of endeavor and support. (1) Anxiety and depression: 02/24/2021 -The patient has been admitted to the [facility] inpatient psychiatric unit at [facility] ([address] [place] [address]) where she has been placed on suicide precautions and will be closely observed. -The patient has been referred to and is encouraged to actively participate and individual, group, and recreational therapies. In addition, we will plan a family intervention. The patient says that she is interested in having several of her siblings who are at least temporarily in the area participate with her in a family meeting. -The patient's outpatient antidepressant medication has been sertraline for quite some time. Her dose of sertraline at the time of admission was not 100 mg a day.. However, she notes that her outpatient psychiatrist has recently advised her that an option would be to discontinue sertraline in favor of duloxetine, given the patient's diagnosis of fibromyalgia and persistent herpes zoster pain. We will begin duloxetine 20 mg daily and titrate as tolerated and indicated towards at least 60 mg a day. -The patient understands that this is likely to be a short hospital stay and that titration of her psychiatric medications may need to occur on an outpatient basis. -Individual, group and recreational therapy will focus on helping the patient develop improved individual coping strategies. -I am encouraging the patient to focus on her expressed need to have other people tell her who she is as a person, and her tendency to allow her sense of herself to be very heavily influenced both the positive and negative comments that are made to her by other people, such as her daughter or the members of her family of origin. The patient make statements such as, "I have always let men pick me. I never picked them. I am [susceptible to] feeling like I have to be whoever they want me to be." 02/25 -Received first dose of Cymbalta this morning. As she is experiencing nausea this morning (preceded Cymbalta dose) will defer consideration for further titration till tomorrow -Regarding nausea, vitals unremarkable and she reports she has been having nausea intermittently for some time as well as recent diarrhea possibly associated with hyperthyroidism also reports history of IBS. Has as needed Maalox. -Reviewed no Ativan received on unit. We will need to clarify how she was using this at home. 02/26 -Patient was encouraged regarding behavioral activation efforts today. She agrees to try to stay up, out of bed, and utilize common areas and participate in group activities today as well as get a shower. Consider possibility that gabapentin has been directly sedating if fatigue persists -While she reports still feeling depressed and with passive suicidal ideation as recently as yesterday evening, describing some improvement in mood and hopefulness this morning -As nausea has resolved, will increase Cymbalta to 40 mg tomorrow (2) Suicidal ideation: 02/24/2021 -At admission, the patient reports persistent suicidal ideation. She does note that during her stay on the medical floor the intensity of the suicidal thoughts have diminished and she has reading a number of papers that have been provided to her during her stay on the medical floor to help her develop improved coping strategies. She notes that she feels able to reliably contract for safety on the unit and assures us that she will let us know if she has thoughts of acting on her suicidality while staying here. -The patient says that because she feels so overwhelmed by the stressors that she is facing in the community she says that she is not yet quite sure if she will be able to tolerate the stress of returning to the community, and she wants to work further on developing her coping strategies and, also, and making certain plans for the future and matters that she feels are "up in the air. 02/25 -Reporting increased intensity of suicidal ideation overnight with increased physical distress secondary to nausea however able to convincingly contract for safety here in the hospital 02/26 -Yet unable to contract for safety outside the hospital (3) Disseminated herpes zoster: 02/24/2021 -The patient's herpes zoster eruption and blisters have all now scabbed over and are healing. She has been cleared medically for the psychiatric unit and for interactions with other people without precautions. However, she continues to experience a number of pain symptoms, and the eruptions are unsightly and are expected to cause distress among her peers. For that reason, we are starting her out in a medically necessary private room for her own dignity and the comfort of other patients. -Because of her herpes and because of her fibromyalgia we are going to start duloxetine 20 mg a day and titrate to or above 60 mg a day as tolerated. Sertraline, her outpatient medication as well as the medication she has been taking for depression on the medical floor has been discontinued in favor of duloxetine. 02/26 -Consider discontinuation of gabapentin if fatigue persists (4) Hyperthyroidism: 02/26 -Continue methimazole for newly diagnosed hyperthyroidism during her recent medical admission. This new medication may also have been contributing to fatigue and nausea yesterday. -Reviewed with patient today that she will require endocrinology follow-up post discharge Inventory Assets Strengths: Intelligent. Educated. Supportive family. Motivated to treatment. Needs: Mood stabilization. Resolution of suicidality. Risk Factors Assessment Male: No : Yes Do You Have Access To A Gun?: No Health Problems: Yes Mental Health Diagnoses: Yes Substance Use Disorders: No Previous Attempt: Yes Previous Attempt; Highly Lethal: No Previous Attempt; Planned: Yes Previous Attempt; Didn't Tell Anyone: Yes (But the patient, herself, interrupted the suicide attempt by overdose and i) Family History of Suicide: No Previous Psychiatric Hospitalization: Yes Hopelessness: No Smoker: No Protective Factors Assessment Shinto Beliefs: Yes ("Spiritual.") : No Responsible for Young Children: No Employed: Yes Stable Relationships: Yes Supportive Family: Yes Good Rapport with Provider: Yes Absence of Any Risk Factors Above: No Interval History Chief Complaint "I feel more clear today but I was really tired yesterday". Review of Systems Notes Continued fatigue but improving. Denies nausea. Sleep Information Total Hours of Sleep: 6.5 Meal Information Percent Meal Consumed - Breakfast: 100 Percent Meal Consumed - Lunch: 100 Percent Meal Consumed - Dinner: 75 Subjective Subjective Patient was seen & assessed and interval progress reviewed with treatment team per staff, patient was fairly isolative in bed for much of the day yesterday. No acute events overnight. Received second dose of Cymbalta this morning. She reports feeling quite fatigued yesterday but already feeling better today. Reports resolution of nausea. Describes her fatigue yesterday in part to being in a room with a sitter while on the medical floor which she believes impacted her ability to rest normally. Indicates willingness to get herself up and out of bed and shower today. Reports mood yesterday was quite low and was experiencing continued suicidal ideation possibly yesterday but reports this is improved at the moment. Discussed recent diagnosis of hyperthyroidism and potential impact on recent mood decompensation. Interestingly she notes that her mood was unusually good this year during the holidays which it typically is not prior to becoming more acutely depressed in the past few months. She is uncertain if the gabapentin has been directly sedating. Physical Exam Psychiatric Orientation: cooperative Apperance: + disheveled Eye Contact: good eye contact Motor Behavior: + psychomotor retardation Speech: normal rate/rhythm/volume of speech Affect: mood congruent with affect; no flat affect and no labile affect Mood: + depressed mood Thought Process: goal directed thought process Thought Content: + preoccupation (re fatigue) Suicidal Thoughts: denies suicidal thoughts (Endorses suicidal ideation as recently as last evening) Hallucinations: no auditory hallucinations Cognition: attention grossly intact Insight: + fair insight Judgement: + fair judgement Vital Signs (Past 24 Hours) Last Vital Signs Temp 36.6 C 02/26/21 06:44 Pulse 94 H 02/26/21 06:45 Resp 16 02/26/21 06:44 BP 115/84 02/26/21 06:45 Results & Data (U) Current Inpatient Medications Current Inpatient Medications: Current Inpatient Medications Al Hydrox/Mg Hydrox/Simethicone (Aluminum/Magnesium Susp 30 Ml Udc) 30 ml PO Q4H PRN PRN Reason: GI Upset Stop: 03/26/21 14:00 Albuterol (Albuterol 0.083% Nebu Soln 3 Ml Vial) 2.5 mg INH Q4 PRN PRN Reason: Wheezing Stop: 03/26/21 15:40 Albuterol (Albuterol Hfa 8 Gm Inhaler) 2 puffs INH Q4 PRN PRN Reason: Shortness Of Breath Stop: 03/26/21 15:40 Ascorbic Acid (Ascorbic Acid 500 Mg Tab) 750 mg PO QAM SAIDA Stop: 03/27/21 08:59 Last Admin: 02/26/21 09:55 Dose: 750 mg Documented by: Cetirizine HCl (Cetirizine Hcl 10 Mg Tablet) 10 mg PO DAILY PRN PRN Reason: Allergic Reaction Stop: 03/26/21 15:40 Cyclobenzaprine HCl (Cyclobenzaprine Hcl 5 Mg Tab) 5 mg PO BID PRN PRN Reason: Muscle Spasticity Stop: 03/26/21 15:40 Last Admin: 02/25/21 06:52 Dose: 5 mg Documented by: Duloxetine HCl (Duloxetine Hcl 20 Mg Cap) 20 mg PO QAM SAIDA Stop: 03/27/21 08:59 Last Admin: 02/26/21 09:57 Dose: 20 mg Documented by: Ergocalciferol (Ergocalciferol 50,000 Units 1250 Mcg Cap) 50,000 units PO Pete@0900 [facility] Stop: 03/28/21 00:00 Last Admin: 02/26/21 09:56 Dose: 50,000 units Documented by: Fluticasone Propionate (Fluticasone Propionate Na Spr 16 Gm Btl) 2 sprays NA DAILY PRN PRN Reason: Nasal Congestion Stop: 03/26/21 15:40 Fluticasone/Vilanterol (Fluticasone/Vilanterol 200/25mcg 14 Puffs/Inhaler) 1 puffs INH QAM [facility] Stop: 03/27/21 08:59 Last Admin: 02/26/21 09:55 Dose: 1 puffs Documented by: Gabapentin (Gabapentin 100 Mg Cap) 100 mg PO BID [facility] Stop: 03/26/21 20:59 Last Admin: 02/26/21 09:56 Dose: 100 mg Documented by: Hydroxyzine HCl (Hydroxyzine Hcl 25 Mg Tab) 50 mg PO HSZ PRN PRN Reason: Insomnia Stop: 03/26/21 14:00 Hydroxyzine HCl (Hydroxyzine Hcl 25 Mg Tab) 25 mg PO Q4H PRN PRN Reason: Anxiety Stop: 03/26/21 14:00 Lidocaine (Lidocaine 5% 1 Patch) 1 patch TD HS [facility] Stop: 03/26/21 21:59 Last Admin: 02/25/21 21:01 Dose: 1 patch Documented by: Loratadine (Loratadine 10 Mg Tab) 10 mg PO HS PRN PRN Reason: Allergy Symptoms Stop: 03/26/21 15:40 Lorazepam (Lorazepam 0.5 Mg Tab) 0.5 - 1 mg PO DAILY PRN PRN Reason: Anxiety Stop: 03/26/21 16:15 Magnesium Hydroxide (Magnesium Hydroxide Susp 30 Ml Udc) 30 ml PO DAILY PRN PRN Reason: Constipation Stop: 03/26/21 14:00 Methimazole (Methimazole 5 Mg Tablet) 5 mg PO DAILY [facility] Stop: 03/27/21 08:59 Last Admin: 02/26/21 09:57 Dose: 5 mg Documented by: Miscellaneous (Remove Lidoderm Patch) 1 ea N/A DAILY@1000 SAIDA Stop: 03/27/21 09:59 Last Admin: 02/26/21 09:59 Dose: 1 ea Documented by: Miscellaneous (Order Awaiting Action([place]-3 Fatty Acids-Vitamin E 1,000 Mg Capsule)) 1 ea N/A QS SAIDA Stop: 03/27/21 00:00 Last Admin: 02/26/21 09:54 Dose: Not Given Documented by: Sodium Chloride (Sodium Chloride 0.65% Na Soln 45 Ml ([place])) 1 - 2 sprays NA PRN PRN PRN Reason: Nasal Dryness/Congestion Stop: 03/26/21 14:00 Vitamin B Complex (Vitamin B Complex Tab) 1 tab PO QAM SAIDA Stop: 03/27/21 08:59 Last Admin: 02/26/21 09:57 Dose: 1 tab Documented by: Mental Health & Subst Abuse Tx Therapist Name of Therapist: [facility] Date of Therapist Appointment: 03/02/21 Supervisor [employer] Name of Supervisor [employer]: Gi Ye Post Discharge Appointments Primary Care Physician Name Of Family Doctor: Dr. Thomas
[2021-02-26] MEDS: LIDOCAINE 5% 1 PATCH TD SCH (21:42)
[2021-02-27] MEDS: FLUTICASONE/VILANTEROL 200/25MCG 14 PUFFS/INHALER INH SCH (09:04)
[2021-02-27] MEDS: methIMAzole 5 MG TABLET PO SCH (09:05)
[2021-02-27] MEDS: VITAMIN B COMPLEX TAB PO SCH (09:05)
[2021-02-27] MEDS: DULoxetine HCL 20 MG CAP PO SCH (09:05)
[2021-02-27] MEDS: ASCORBIC ACID 500 MG TAB PO SCH (09:06)
[2021-02-27] MEDS: GABAPENTIN 100 MG CAP PO SCH ×2 (09:06→21:26)
--- NOTE | 2021-02-27 09:58 | Psychiatric Progress Note ---
Date of Service February 27, 2021 Impression / Recommendations Impression Per admitting provider: This 55-year-old woman presents with a long psychiatric history that has included episodes of major depression, at least 3 suicide attempts, chronic suicidal ideation, and a past diagnosis of borderline personality disorder. She is convinced that she has the ability to communicate with people, through oral and auditory means. In other words, she believes that she hears the voices of persons who have , and that she believes that they can hear her when she talks to them. Although she reports that she is chronically depressed with symptoms that wax and wane, she believes that her current episode of depression and emotional distress is related to several factors, including the fact that she had expected to complete her role as mother of 5 children this year with her daughters plan to move to [place] and go to college. 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 She is eager to leave [place] and move closer to her family of origin in [place], [place]. Also, within the context of her belief that she can communicate with the spiritual world, she is distressed because she believes that her late son, Austen, has decided to be reincarnated as a baby that is, in fact, her nephew (the son of the patient's sister, a woman who is 25 years younger than the patient). This, she says she has been told, will and Austen's relationship with the patient from beyond the grave, and the patient says that Austen has always been her "rock" and a primary source of support. 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 Further, the patient's family of origin and her other children do not believe that she is able to communicate with her late relatives, and she says that she feels isolated and alone because no one believes her. 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 Accordingly, she says that at 55 she is faced with the task of finding a new field of endeavor and support. (1) Anxiety and depression: 02/24/2021 -The patient has been admitted to the [facility] inpatient psychiatric unit at [facility] [address] ([address] [place] [address]) where she has been placed on suicide precautions and will be closely observed. -The patient has been referred to and is encouraged to actively participate and individual, group, and recreational therapies. In addition, we will plan a family intervention. The patient says that she is interested in having several of her siblings who are at least temporarily in the area participate with her in a family meeting. -The patient's outpatient antidepressant medication has been sertraline for quite some time. Her dose of sertraline at the time of admission was not 100 mg a day.. However, she notes that her outpatient psychiatrist has recently advised her that an option would be to discontinue sertraline in favor of duloxetine, given the patient's diagnosis of fibromyalgia and persistent herpes zoster pain. We will begin duloxetine 20 mg daily and titrate as tolerated and indicated towards at least 60 mg a day. -The patient understands that this is likely to be a short hospital stay and that titration of her psychiatric medications may need to occur on an outpatient basis. -Individual, group and recreational therapy will focus on helping the patient develop improved individual coping strategies. -I am encouraging the patient to focus on her expressed need to have other people tell her who she is as a person, and her tendency to allow her sense of herself to be very heavily influenced both the positive and negative comments that are made to her by other people, such as her daughter or the members of her family of origin. The patient make statements such as, "I have always let men pick me. I never picked them. I am [susceptible to] feeling like I have to be whoever they want me to be." 02/25 -Received first dose of Cymbalta this morning. As she is experiencing nausea th is morning (preceded Cymbalta dose) will defer consideration for further titration till tomorrow -Regarding nausea, vitals unremarkable and she reports she has been having nausea intermittently for some time as well as recent diarrhea possibly associated with hyperthyroidism also reports history of IBS. Has as needed Maalox. -Reviewed no Ativan received on unit. We will need to clarify how she was using this at home. 02/26 -Patient was encouraged regarding behavioral activation efforts today. She agrees to try to stay up, out of bed, and utilize common areas and participate in group activities today as well as get a shower. Consider possibility that gabapentin has been directly sedating if fatigue persists -While she reports still feeling depressed and with passive suicidal ideation as recently as yesterday evening, describing some improvement in mood and hopefulness this morning -As nausea has resolved, will increase Cymbalta to 40 mg tomorrow 02/27 - Cymbalta titrated to 40mg today as scheduled - pt reports resolution of "feeling jittery." - Pt reports improvement in mood and denies SI today - considering discharge as soon as tomorrow - Family meeting scheduled for this afternoon with daughters - Confirm outpatient follow-up appointments - Encourage completion of written safety plan (2) Suicidal ideation: 02/24/2021 -At admission, the patient reports persistent suicidal ideation. She does note that during her stay on the medical floor the intensity of the suicidal thoughts have diminished and she has reading a number of papers that have been provided to her during her stay on the medical floor to help her develop improved coping strategies. She notes that she feels able to reliably contract for safety on the unit and assures us that she will let us know if she has thoughts of acting on her suicidality while staying here. -The patient says that because she feels so overwhelmed by the stressors that she is facing in the community she says that she is not yet quite sure if she will be able to tolerate the stress of returning to the community, and she wants to work further on developing her coping strategies and, also, and making certain plans for the future and matters that she feels are "up in the air. 02/25 -Reporting increased intensity of suicidal ideation overnight with increased physical distress secondary to nausea however able to convincingly contract for safety here in the hospital 02/26 -Yet unable to contract for safety outside the hospital 02/27 - Denies SI today, reports feeling "more like myself" - Discuss safety and discharge planning during family meeting today (3) Disseminated herpes zoster: 02/24/2021 -The patient's herpes zoster eruption and blisters have all now scabbed over and are healing. She has been cleared medically for the psychiatric unit and for interactions with other people without precautions. However, she continues to experience a number of pain symptoms, and the eruptions are unsightly and are expected to cause distress among her peers. For that reason, we are starting her out in a medically necessary private room for her own dignity and the comfort of other patients. -Because of her herpes and because of her fibromyalgia we are going to start duloxetine 20 mg a day and titrate to or above 60 mg a day as tolerated. Sertraline, her outpatient medication as well as the medication she has been taking for depression on the medical floor has been discontinued in favor of duloxetine. 02/26 -Consider discontinuation of gabapentin if fatigue persists (4) Hyperthyroidism: 02/26 -Continue methimazole for newly diagnosed hyperthyroidism during her recent medical admission. This new medication may also have been contributing to fatigue and nausea yesterday. -Reviewed with patient today that she will require endocrinology follow-up post discharge 02/27 - Schedule PCP appointment for follow-up, endocrinology referral Inventory Assets Strengths: Intelligent. Educated. Supportive family. Motivated to treatment. Needs: Mood stabilization. Resolution of suicidality. Risk Factors Assessment Male: No : Yes Do You Have Access To A Gun?: No Health Problems: Yes Mental Health Diagnoses: Yes Substance Use Disorders: No Previous Attempt: Yes Previous Attempt; Highly Lethal: No Previous Attempt; Planned: Yes Previous Attempt; Didn't Tell Anyone: Yes (But the patient, herself, interrupted the suicide attempt by overdose and i) Family History of Suicide: No Previous Psychiatric Hospitalization: Yes Hopelessness: No Smoker: No Protective Factors Assessment Judaism Beliefs: Yes ("Spiritual.") : No Responsible for Young Children: No Employed: Yes Stable Relationships: Yes Supportive Family: Yes Good Rapport with Provider: Yes Absence of Any Risk Factors Above: No Interval History Identifying Information ANDREEA HURD is a 55-year-old F who currently lives in [place] with her 19-year-old daughter. She has a history of major depressive disorder, recurrent, and borderline personality disorder. She was admitted on 02/24/21 14:02 on a 201 voluntary agreement because of depression and suicidality with past instances of furtherance. Chief Complaint "Better. I'm starting to feel more like myself." Review of Systems Notes Constitutional: denied Cardiovascular: denied Respiratory: denied Gastrointestinal: denied Neurological: denied Psychiatric: denies symptoms other than stated above Total of at least 10 systems reviewed, pertinent positives as above and in HPI. Sleep Information Total Hours of Sleep: 6.5 Meal Information Percent Meal Consumed - Breakfast: 100 Percent Meal Consumed - Lunch: 100 Percent Meal Consumed - Dinner: 75 Subjective Subjective Patient was seen & assessed and interval progress reviewed with treatment team. Staff report the patient has not been attending groups regularly, often isolating in her room and more withdrawn. She reported feeling "jittery" last evening and did attend community meeting, rating her mood a 6/10. Pt is scheduled for a family meeting with her daughters this afternoon. She was seen today to assess progress since admission. Pt states she is feeling "better. 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 Pt admits that she is still processing the events that led to her presentation and the fact that her depression felt so different compared to previous episodes. Pt does believe that her hyperthyroidism is responsible for this in some way, but states that that realization is almost a relief for her. She denies suicidal ideation and was encouraged to plan for there to be a discuss of safety planning during the family meeting with her daughters today. Pt describes the lifting depression and resolution of SI as "the demon is gone." Pt states that she is still preparing for an eventual move out of the area, and states she is aware she will need to begin sorting through "all the baggage" (referring to her belongings at home). She states "but this time I'll be cleaning out for the right reasons. I'll be getting rid of stuff because I'm preparing for the next step in life, not because I don't want my kids to deal with it after I'm gone" (referring to previous reports that she was cleaning things in preparation for planned suicide). Pt states she was happy with her estimated length of stay and is hopeful for discharge soon. Pt denied other needs or concerns today. Physical Exam Psychiatric Orientation: alert, oriented x 3 and cooperative Apperance: appropriately dressed, appropriately groomed and appeared stated age Eye Contact: good eye contact Motor Behavior: steady gait and station and no abnormal motor movements Speech: normal rate/rhythm/volume of speech Affect: euthymic affect (smiling appropriately ) Mood: + depressed mood (but admits to feeling "senior integration architect" and "more like myself") Thought Process: goal directed thought process and clear/coherent thought process Thought Content: reality based without delusions; no hopelessness and no worthlessness Suicidal Thoughts: denies suicidal thoughts and denies suicidal intent Homicidal Thoughts: denies homicidal thoughts Hallucinations: no auditory hallucinations and no visual hallucinations Cognition: recent memory grossly intact, attention grossly intact and language grossly intact Estimated Intelligence: consistent with education level Insight: + fair insight Judgement: + fair judgement Vital Signs (Past 24 Hours) Last Vital Signs Temp 36.5 C 02/27/21 06:26 Pulse 92 H 02/27/21 06:26 Resp 16 02/27/21 06:26 BP 125/78 02/27/21 06:26 Results & Data ([facility]) Current Inpatient Medications Current Inpatient Medications: Current Inpatient Medications Al Hydrox/Mg Hydrox/Simethicone (Aluminum/Magnesium Susp 30 Ml Udc) 30 ml PO Q4H PRN PRN Reason: GI Upset Stop: 03/26/21 14:00 Albuterol (Albuterol 0.083% Nebu Soln 3 Ml Vial) 2.5 mg INH Q4 PRN PRN Reason: Wheezing Stop: 03/26/21 15:40 Albuterol (Albuterol Hfa 8 Gm Inhaler) 2 puffs INH Q4 PRN PRN Reason: Shortness Of Breath Stop: 03/26/21 15:40 Ascorbic Acid (Ascorbic Acid 500 Mg Tab) 750 mg PO QAM SAIDA Stop: 03/27/21 08:59 Last Admin: 02/27/21 09:06 Dose: 750 mg Documented by: Cetirizine HCl (Cetirizine Hcl 10 Mg Tablet) 10 mg PO DAILY PRN PRN Reason: Allergic Reaction Stop: 03/26/21 15:40 Cyclobenzaprine HCl (Cyclobenzaprine Hcl 5 Mg Tab) 5 mg PO BID PRN PRN Reason: Muscle Spasticity Stop: 03/26/21 15:40 Last Admin: 02/25/21 06:52 Dose: 5 mg Documented by: Duloxetine HCl (Duloxetine Hcl 20 Mg Cap) 40 mg PO QAM SAIDA Stop: 03/29/21 08:59 Last Admin: 02/27/21 09:05 Dose: 40 mg Documented by: Ergocalciferol (Ergocalciferol 50,000 Units 1250 Mcg Cap) 50,000 units PO Pete@0900 [facility] Stop: 03/28/21 00:00 Last Admin: 02/26/21 09:56 Dose: 50,000 units Documented by: Fluticasone Propionate (Fluticasone Propionate Na Spr 16 Gm Btl) 2 sprays NA DAILY PRN PRN Reason: Nasal Congestion Stop: 03/26/21 15:40 Fluticasone/Vilanterol (Fluticasone/Vilanterol 200/25mcg 14 Puffs/Inhaler) 1 puffs INH QAM SAIDA Stop: 03/27/21 08:59 Last Admin: 02/27/21 09:04 Dose: 1 puffs Documented by: Gabapentin (Gabapentin 100 Mg Cap) 100 mg PO BID [facility] Stop: 03/26/21 20:59 Last Admin: 02/27/21 09:06 Dose: 100 mg Documented by: Hydroxyzine HCl (Hydroxyzine Hcl 25 Mg Tab) 50 mg PO HSZ PRN PRN Reason: Insomnia Stop: 03/26/21 14:00 Hydroxyzine HCl (Hydroxyzine Hcl 25 Mg Tab) 25 mg PO Q4H PRN PRN Reason: Anxiety Stop: 03/26/21 14:00 Lidocaine (Lidocaine 5% 1 Patch) 1 patch TD HS SAIDA Stop: 03/26/21 21:59 Last Admin: 02/26/21 21:42 Dose: 1 patch Documented by: Loratadine (Loratadine 10 Mg Tab) 10 mg PO HS PRN PRN Reason: Allergy Symptoms Stop: 03/26/21 15:40 Lorazepam (Lorazepam 0.5 Mg Tab) 0.5 - 1 mg PO DAILY PRN PRN Reason: Anxiety Stop: 03/26/21 16:15 Magnesium Hydroxide (Magnesium Hydroxide Susp 30 Ml Udc) 30 ml PO DAILY PRN PRN Reason: Constipation Stop: 03/26/21 14:00 Methimazole (Methimazole 5 Mg Tablet) 5 mg PO DAILY [facility] Stop: 03/27/21 08:59 Last Admin: 02/27/21 09:05 Dose: 5 mg Documented by: Miscellaneous (Remove Lidoderm Patch) 1 ea N/A DAILY@1000 [facility] Stop: 03/27/21 09:59 Last Admin: 02/27/21 09:07 Dose: 1 ea Documented by: Miscellaneous (Order Awaiting Action([place]-3 Fatty Acids-Vitamin E 1,000 Mg Capsule)) 1 ea N/A QS SAIDA Stop: 03/27/21 00:00 Last Admin: 02/27/21 09:04 Dose: Not Given Documented by: Sodium Chloride (Sodium Chloride 0.65% Na Soln 45 Ml ([place])) 1 - 2 sprays NA PRN PRN PRN Reason: Nasal Dryness/Congestion Stop: 03/26/21 14:00 Vitamin B Complex (Vitamin B Complex Tab) 1 tab PO QAM SAIDA Stop: 03/27/21 08:59 Last Admin: 02/27/21 09:05 Dose: 1 tab Documented by: Mental Health & Subst Abuse Tx Therapist Name of Therapist: [facility] Date of Therapist Appointment: 03/02/21 Live Hanger Name of Live Hanger: Gi Ye Post Discharge Appointments Primary Care Physician Name Of Family Doctor: Dr. Thomas
[2021-02-27] MEDS: LIDOCAINE 5% 1 PATCH TD SCH (21:26)
[2021-02-27] MEDS: CYCLOBENZAPRINE HCL 5 MG TAB PO PRN (23:09)
[2021-02-28] MEDS: FLUTICASONE/VILANTEROL 200/25MCG 14 PUFFS/INHALER INH SCH (08:42)
[2021-02-28] MEDS: VITAMIN B COMPLEX TAB PO SCH (08:43)
[2021-02-28] MEDS: ASCORBIC ACID 500 MG TAB PO SCH (08:43)
[2021-02-28] MEDS: GABAPENTIN 100 MG CAP PO SCH (08:43)
[2021-02-28] MEDS: methIMAzole 5 MG TABLET PO SCH (08:43)
[2021-02-28] MEDS: DULoxetine HCL 20 MG CAP PO SCH (08:43)
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
== END 2021-02-28 12:58 | disposition home or self-care (01) | DRG 885 ==
LOC: 3S 14:02